=== PATIENT | female | born 1940 | race Caucasian/White ===

== ENCOUNTER 2018-05-12 11:00 | Day surgery (SDC) | payer MEDICARE ==
[~2018-05-12] VITALS: Ht 160 cm; Wt 78.9 kg
[~2018-05-12 11:00] MED LIST: NORCO 5-325 TA1 EACH PO
[2018-05-12] MEDS ORDERED: HYDROCODON-ACE1 EA10 PO (13:34)
--- NOTE | 2018-05-12 13:59 | NUR ---
05/12/18 1358 Sydnee Moctezuma 1336- PT ARRIVES TO PACU ALERT. RESP EVEN AND UNLABORED. OXYGEN SAT HIGH 90'S ON RA. PT STATES HER HAND FEELS LIKE AN "INFERNO"! PT IS UPSET THAT HER HAND FEELS LIKE IT IS ON FIRE. KE ERICKSON CRNA NOTIFIED AND MEDICATIONS ORDERED. 1343- PT RESTING AT THIS TIME. OXYGEN SAT DROPPED TO 87% ON RA. PT INSTRUCTED TO TAKE DEEP BREATHS AND COUGH. PT IS ABLE TO PERFORM THESE AND OXYGEN INCREASED TO THE HIGH 90'S ON RA. 1345- PT STATES THE PAIN IS MUCH IMPROVED. RATES THE PAIN A 4/10 AND PT IS MUCH HAPPIER. PT IS TALKING AND TELLING STORIES. 1351- PT DRINKING WATER AND TOLERATING WELL.
--- NOTE | 2018-05-15 08:12 | OR ---
[facility] [address], [place] [address] Signed DATE OF OPERATION: 05/12/2018 SURGEON: Jodi Fisher MD PREOPERATIVE DIAGNOSIS: Trigger finger, left ring and small. POSTOPERATIVE DIAGNOSIS: Trigger finger, left ring and small. PROCEDURE PERFORMED: Trigger finger release, left ring and small. TRANSPORTATION COORDINATOR: None. ANESTHESIA: [place] block. TOURNIQUET TIME: 20 minutes. BRIEF HISTORY: Brisa is a 78-year-old female with pain and locking in her fingers. She had extensive synovitis associated with this. Risks and benefits of operative treatment discussed with her and she elected to proceed. DESCRIPTION OF PROCEDURE: Once consent was obtained, she was taken to the operating room. After adequate anesthesia, she was placed on the operating room table. Downside pressure points were well padded. After establishment of [place] block, hand was prepped and draped in a standard sterile fashion. A 1 cm incision was made in the distal palmar crease of the fourth ray and taken through skin and subcutaneous tissue. The A1 ary was identified and under loupe magnification, was released. The finger was then moved. The tendon had full excursion. Second incision was made overlying the fifth ray and carried through the skin and subcutaneous tissue and directly down on the A1 ary once again. Again it was released under loupe magnification. The finger had full excursion with full tendon excursion underneath. Both wounds were copiously irrigated with antibiotic solution, closed with 3-0 nylon, dressed with bacitracin, Adaptic, 4 x 8 gauze, and did infiltrate 4 mL of 0.5% plain Marcaine. At the end of the procedure, she was awakened and taken to Electronically Signed By: JODI FISHER MD 05/15/18 0812 PATIENT NAME: BRISA ROME OPERATIVE REPORT DATE OF : 44 REPORT #: [id number] PHYSICIAN: JODI FISHER MD PCP: NO PRIMARY CARE PHYSICIAN REPORT IS CONFIDENTIAL AND NOT TO BE RELEASED WITHOUT AUTHORIZATION [address] [place], [place] [address] Signed the recovery room in satisfactory condition. All sponge, needle, and instrument counts were correct. Jodi Fisher MD BA/MODL /[id number] Copies: ~ Electronically Signed By: JODI FISHER MD 05/15/18 0812 PATIENT NAME: BRISA ROME OPERATIVE REPORT DATE OF : 44 REPORT #: [id number] PHYSICIAN: JODI FISHER MD PCP: NO PRIMARY CARE PHYSICIAN REPORT IS CONFIDENTIAL AND NOT TO BE RELEASED WITHOUT AUTHORIZATION
== END 2018-05-12 14:48 | disposition home or self-care (01) ==
LOC: DS 11:00 → OPS 11:00
PROVIDERS: Specialist
PROC: 0LN80ZZ Release Left Hand Tendon, Open Approach (ICD-10-PCS; principal; 2018-05-12 12:00)
DX: M65.342 Trigger finger, left ring finger (principal); M65.352 Trigger finger, left little finger; G56.02 Carpal tunnel syndrome, left upper limb; M72.0 Palmar fascial fibromatosis [Dupuytren]
CPT/HCPCS: 01810; J0690; J2250; J2704; J3010; J7120

== ENCOUNTER 2019-10-12 01:21 | Emergency (ER) | payer MEDICARE ==
[~2019-10-12] VITALS: Ht 160 cm; Wt 81.7 kg
--- OUTSIDE RECORDS SUMMARY | ~2019-10-12 | XMS | Encounter Summary ---
Demographics + + + | Address | [address] | | | [place] [address] | + + + | Home Phone | | + + + | Preferred Language | Unknown | + + + | Marital Status | Unknown | + + + | Buddhism Affiliation | Unknown | + + + | Race | Unknown | + + + | Ethnic Group | Unknown | + + + Author + + + | Author | [facility] | | | and [place] | + + + | Organization | [facility] | | | and [place] | + + + | Address | Unknown | + + + | Phone | Unavailable | + + + Support + + +---------+ + | Name | Relationship | Address | Phone | + + +---------+ + | Everardo Huang | ECON | Unknown | | + + +---------+ + | Kacymoi Bentley | ECON | Unknown | | + + +---------+ + Care Team Providers + +------+ + | Care Bariatric Program Coordinator Name | Role | Phone | + +------+ + | No, Physician | PCP | Unavailable | + +------+ + Reason for Visit + + + | Reason | Comments | + + + | Establish Care | Carpal Tunnel Syndrome | + + + Evaluate & Treat (Routine) +--------+ + + + + + | Status | Reason | Specialty | Diagnoses / | Referred By | Referred To | | | | | Procedures | Contact | Contact | +--------+ + + + + + | Closed | Specialty | Neurology | Diagnoses | Phillip, | Cheryl, | | | Services | | Carpsom | Victor M Davis, | Ophelia Chan, | | | Required | | tunnel | MD [address] | MD [address] | | | | | syndrome, | [address] | [address], | | | | | right upper | [place] | [address] | | | | | limb [place] | [place] | [place] | | | | | tunnel | [address] | [address] Phone: | | | | | syndrome, | Phone: | [phone] | | | | | left upper | [phone] | Fax: | | | | | limb | Fax: | [phone] | | | | | | [phone] | | +--------+ + + + + + Encounter Details +--------+---------+ + + + | Date | Type | Department | Care Team | Description | +--------+---------+ + + + | 08/03/ | Office | [facility] | [facility] | Hand numbness | | 2019 | Visit | [facility] | [address] | | | | | [address] | [address] | | | | | [address], | [place] [address] | | | | | [place] [address] | [phone] | | | | | [phone] | | | | | | | Ophelia Luna, | | | | | | MD [address] | | | | | | [address] | | | | | | [place] [address] | | | | | | [phone] | | | | | | | | +--------+---------+ + + + Social History + + + +--------+ + | Tobacco Use | Types | Packs/Day | Years | Date | | | | | Used | | + + + +--------+ + | Former Smoker | Cigarettes | | | 1966 | + + + +--------+ + + +---+---+---+ | Smokeless Tobacco: | | | | | Never Used | | | | + +---+---+---+ + + +---------+ + | Alcohol Use | Drinks/Week | oz/Week | Comments | + + +---------+ + | Yes | 2 Standard drinks | 2.0 | | | | or equivalent | | | + + +---------+ + + + + | Sex Assigned at | Date Recorded | | | | + + + | Not on file | | + + + documented as of this encounter Last Filed Vital Signs + + + + + | Vital Sign | Reading | Time Taken | Comments | + + + + + | Blood Pressure | 139/84 | 08/03/2018 9:04 AM | | | | | PDT | | + + + + + | Pulse | 80 | 08/03/2018 9:04 AM | | | | | PDT | | + + + + + | Temperature | - | - | | + + + + + | Respiratory Rate | 18 | 08/03/2018 9:04 AM | | | | | PDT | | + + + + + | Oxygen Saturation | 98% | 08/03/2018 9:04 AM | | | | | PDT | | + + + + + | Inhaled Oxygen | - | - | | | Concentration | | | | + + + + + | Weight | 81.2 kg (179 lb 1.6 | 08/03/2018 9:04 AM | | | | oz) | PDT | | + + + + + | Height | 161.3 cm (5' 3.5") | 08/03/2018 9:04 AM | | | | | PDT | | + + + + + | Body Mass Index | 31.23 | 08/03/2018 9:04 AM | | | | | PDT | | + + + + + documented in this encounter Patient Instructions Patient Instructions Ophelia Luna MD - 08/03/2018 9:15 AM PDTFormatting of this no te might be different from the original. You have the following tests/procedures ordered. At [facility] Electromyography (EMG) study with Dr. Luna Other Instructions: Wear wrist extensor braces at night. *Any questions, please call Dr. Luna's office at Patient advised of their right to have diagnostic testing, health care treatment, and/or se rvices at a facility other than [facility]. Understanding Carpal Tunnel Syndrome The carpal tunnel is a narrow space inside the wrist. It is ringed by bone and a band of to h tissue called the transverse carpal ligament. A major nerve called the median nerve runs from the forearm into the hand through the carpal tunnel. Tendons also run through the carp al tunnel. With carpal tunnel syndrome, the tendons or nearby tissues within the carpal tunnel may swe ll or thicken. Or the transverse carpal ligament may harden and shorten. This narrows the sp lily in the carpal tunnel and puts pressure on the median nerve. This pressure leads to tingl ing and numbness of the hand and wrist. In time, the condition can make even simple tasks garrison rd to do. What causes carpal tunnel syndrome? Doctors aren t entirely clear why the condition occurs. Certain things may make a person more likely to have it. These include: Being female Being Being overweight Having diabetes or rheumatoid arthritis Symptoms of carpal tunnel syndrome Symptoms often come and go. At first, symptoms may occur mainly at night. Later, they may b e noticed during the day as well. They may get worse with activities such as driving, readin g, typing, or holding a phone. Symptoms can include: Tingling and numbness in the hand or wrist Sharp pain that shoots up the arm or down to the fingers Hand stiffness or cramping, especially in the morning Trouble making a fist Hand weakness and clumsiness Treatment for carpal tunnel syndrome Certain treatments help reduce the pressure on the median nerve and relieve symptoms. [facility] es for treatment may include one or more of the following: Wrist splint. This involves wearing a special brace on the wrist and hand. The splint ho lds the wrist straight, in a neutral position. This helps keep the carpal tunnel as open as possible. Cortisone shots. Cortisone is a medicine that helps reduce swelling. It is injected dire ctly into the wrist. It helps shrink tissues inside the carpal tunnel. This relieves symptom s for a time. Pain medicines. You may take gchm-qpb-odcxuur or prescription medicines to help reduce s welling and relieve symptoms. Surgery. If the condition doesn t respond to other treatments and doesn t go away on its own, you may need surgery. During surgery, the surgeon cuts the transverse carpal ligam ent to relieve pressure on the median nerve. When to call your healthcare provider Call your healthcare provider right away if you have any of these: Fever of 100.4F (38C) or higher, or as directed Symptoms that don t get better, or get worse New symptoms Date Last Reviewed: 06/19/201519994078-5445 [employer]. [address] [place] [address]. All righ ts reserved. This information is not intended as a substitute for professional medical care. Always follow your healthcare professional's instructions. documented in this encounter Progress Notes Ophelia Luna MD - 08/03/2018 9:15 AM PDT Patient: Brisa Huang Medical Record: [id number] Date of Services: 08/03/2018 Referring Doctor: No Physician on file Chief Complaint Patient presents with [facility] Carpal Tunnel Syndrome HISTORY OF PRESENT ILLNESS: The patient is a 78-year-old female who is referred to me because of bilateral thumb numbne ss. Her symptoms started a year ago and are progressively worsening. She describes numbness an d pain in both thumbs that occasionally radiates a few inches up her forearms. They are wor se at night and usually wake her up. She is not currently wearing braces. She also finds it difficult to hold things in her hands such as a phone or a tablet. She a lso now has difficulty doing embroidery and crocheting. Her symptoms are worse on the left where she is also losing her pickle solution maker. She also has difficulty opening jars. She does have a history of trigger finger release in both hands. She denies elbow pain. S he does have a history of neck pain. REVIEW OF SYSTEMS: General: No fever HEENT: No vision changes Cardiovascular: No chest pain Respiratory: No shortness of breath Gastrointestinal: No belching Musculoskeletal: Positive for joint stiffness Skin: Positive for dryness and itchiness Hematologic: Positive for bruising Neurologic: Positive for memory loss Psychiatric: Positive for depression Genitourinary: Positive for nocturia PAST MEDICAL HISTORY: Past Medical History: Diagnosis Date Breast cancer (HCC) Depression Migraine PAST SURGICAL HISTORY: Past Surgical History: Procedure Laterality Date CERVICAL SPINE SURGERY FINGER TRIGGER RELEASE KNEE ARTHROSCOPY MEDICATIONS: No current outpatient medications on file. No current facility-administered medications for this visit. ALLERGIES: Allergies Allergen Reactions Hydrocodone Itching Social History Socioeconomic History Marital status: Not on file Spouse name: Not on file Number of children: Not on file Years of education: Not on file Highest education level: Not on file Social Needs Financial resource strain: Not on file Food insecurity - worry: Not on file Food insecurity - inability: Not on file Transportation needs - medical: Not on file Transportation needs - non-medical: Not on file Occupational History Not on file Tobacco Use Smoking status: Former Smoker Types: Cigarettes Start date: 1966 Last attempt to quit: 1986 Years since quittin.3 Smokeless tobacco: Never Used Substance and Sexual Activity Alcohol use: Yes Alcohol/week: 1.2 oz Types: 2 Standard drinks or equivalent per week Drug use: Never Sexual activity: Not on file Other Topics Concern Not on file Social History Narrative Not on file Family History Problem Relation Age of Onset Stroke Mother Stroke Sister Diabetes Sister Heart disease Sister PHYSICAL EXAMINATION: BP 139/84 | Pulse 80 | Resp 18 | Ht 1.613 m (5' 3.5") | Wt 81.2 kg (179 lb 1.6 oz) | S pO2 98% | BMI 31.23 kg/m Neck is supple. Lungs are clear. Heart sounds are within normal limits. Abdomen is soft and non-tender, There is no extremity cyanosis or edema. NEUROLOGIC EXAMINATION: MENTAL STATUS: The patient is awake, alert, and oriented to time, place, and person. [facility] is fluent. Memory, attention, comprehension, and general fund of knowledge are intact. CRANIAL NERVES: Funduscopy revealed distinct disc margins. There are no exudates or hemor rhages noted. Pupils are 3-4 mm, equal and reactive to light and accommodation. Extraocular muscle movements are intact. There are no visual field cuts. There is no nystagmus. There is no facial asymmetry. Facial sensation is intact. Palate elevates symmetrically. Streng th in the trapezius and sternocleidomastoid muscles is normal. Tongue is midline on protrusi on. MOTOR EXAMINATION: Strength is 4/5 in the bilateral abductor pollicis brevis muscles, slig htly worse on the left. SENSORY EXAMINATION: Diminished pinprick in the palmar surface of both thumbs. DEEP TENDON REFLEXES: 1+ and symmetric. PLANTAR RESPONSES: Downgoing bilaterally GAIT: Gait and station are normal. CEREBELLAR EXAMINATION: There is no dysmetria on sptrha-pm-dvzl test. Miscellaneous: There is mild thenar atrophy noted in the left. Tinel's and Phalen's signs are positive bilaterally IMPRESSION: 1. Hand numbness - EMG-BUE; Future PLAN AND RECOMMENDATIONS: I reviewed the possible etiology of the patient's symptoms with her. I believe she has naeem ateral carpal tunnel syndrome and I went over the pathophysiology of the condition. I also went over treatment options including braces, medications, steroid injections, and c arpal tunnel release. She was advised to start wearing wrist extensor braces at night. She will be scheduled for an EMG examination of the upper extremities. Following the study , she will be referred back to her orthopedic surgeon, Dr. Victor M Fisher who made this refer ral. More than 50% of this 45 minute visit was spent on patient education and her plan of care. Thank you for the opportunity to participate in the care of this patient. Ophelia Luna MD08/03/20189:33 Electronically signed This note was transcribed using voice recognition software. There may be speech recognitio n errors which escaped detection during review. documented in thi s encounter Plan of Treatment Not on filedocumented as of this encounter Results EMG-BUE (08/11/2018 11:45 AM PDT) + + + | Narrative | Performed At | + + + | Ophelia Luna MD 08/11/2018 12:21 Please see scanned | | | report. | | + + + documented in this encounter Visit Diagnoses + + | Diagnosis | + + | Hand numbness Disturbance of skin sensation | + + documented in this encounter
--- OUTSIDE RECORDS SUMMARY | ~2019-10-12 | XMS | Clinical Summary ---
Demographics + + + | Address | [address] | | | [place] [address] | + + + | Home Phone | | + + + | Preferred Language | Unknown | + + + | Marital Status | Unknown | + + + | Advent Affiliation | Unknown | + + + | Race | Unknown | + + + | Ethnic Group | Unknown | + + + Author + + + | Author | [facility] | | | and [place] | + + + | Organization | [facility] | | | and [place] | + + + | Address | Unknown | + + + | Phone | Unavailable | + + + Support + + +---------+ + | Name | Relationship | Address | Phone | + + +---------+ + | Everardo Huang | ECON | Unknown | | + + +---------+ + | Kacy Bentley | ECON | Unknown | | + + +---------+ + Care Team Providers + +------+ + | Care Microcomputer Technician Name | Role | Phone | + +------+ + | No, Physician | PCP | Unavailable | + +------+ + Allergies + + + + + + | Active Allergy | Reactions | Severity | Noted | Comments | | | | | Date | | + + + + + + | Hydrocodone | Itching | | 08/04/19 | | | | | | 19 | | + + + + + + Medications No known medications Active Problems + + + | Problem | Noted Date | + + + | Bilateral carpal tunnel syndrome | 08/03/2018 | + + + Family History + + +------+ + | Medical History | Relation | Name | Comments | + + +------+ + | Stroke | Mother | | | + + +------+ + | Diabetes | Sister | | | + + +------+ + | Heart disease | Sister | | | + + +------+ + | Stroke | Sister | | | + + +------+ + + +------+ + + | Relation | Name | Status | Comments | + +------+ + + | Father | | | | + +------+ + + | Mother | | | | + +------+ + + | Sister | | | | + +------+ + + Social History + + + [...] on file | | + + + Last Filed Vital Signs + + + + + | Vital Sign | Reading | Time Taken | Comments | + + + + + | Blood Pressure | 137/61 | 08/11/2018 11:50 AM | | | | | PDT | | + + + + + | Pulse | 74 | 08/11/2018 11:50 AM | | | | | PDT | | + + + + + | Temperature | - | - | | + + + + + | Respiratory Rate | 18 | 08/11/2018 11:50 AM | | | | | PDT | | + + + + + | Oxygen Saturation | 98% | 08/11/2018 11:50 AM | | | | | PDT | | + + + + + | Inhaled Oxygen | - | - | | | Concentration | | | | + + + + + | Weight | 81.2 kg (179 lb) | 08/11/2018 11:50 AM | | | | | PDT | | + + + + + | Height | 161 cm (5' 3.39") | 08/11/2018 11:50 AM | | | | | PDT | | + + + + + | Body Mass Index | 31.32 | 08/11/2018 11:50 AM | | | | | PDT | | + + + + + Plan of Treatment + + + + + | Health Maintenance | Due Date | Last | Comments | | | | Done | | + + + + + | Vaccine: Zoster (1 | | | | | of 2) | 2 | | | + + + + + | Breast Cancer | | | | | Screening | 7 | | | + + + + + | Vaccine: | | | | | Pneumococcal 65+ (1 | 7 | | | | of 1 - PPSV23) | | | | + + + + + | Adult Annual | | | | | Wellness Visit | 9 | | | + + + + + | Vaccine: Influenza | | | | | (Season Ended) | 0 | | | + + + + + | Vaccine: | | 12/04/19 | | | Dtap/Tdap/Td (2 - | 8 | 18 | | | Td) | | | | + + + + + Results Not on filefrom Last 3 Months Insurance + +--------+ +--------+ +---------+--------+ | Payer | Benefi | Subscriber | Effect | Phone | Address | Type | | | t Plan | ID | bandar | | | | | | / | | Dates | | | | | | Group | | | | | | + +--------+ +--------+ +---------+--------+ | MEDICARE | MEDICA | [id number] | 10/10/19 | [phone] | | Medica | | | RE | | 13-Pre | 5 | | re | | | PART A | | sent | | | | | | AND B | | | | | | + +--------+ +--------+ +---------+--------+ + +--------+ +--------+ + + | Guarantor Name | Accoun | Relation to | Date | Phone | Billing Address | | | t Type | Patient | of | | | | | | | | | | + +--------+ +--------+ + + | Brisa Huang | Person | Self [birth year] | [address] | | | al/Fam | | 1940 | [phone] | [address] [place] | | | kenji | | | [address] (Home) | [place] [address] | + +--------+ +--------+ + + Advance Directives + + + + + | Type | Date Recorded | Patient | Explanation | | | | 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
--- OUTSIDE RECORDS SUMMARY | ~2019-10-12 | XMS | Encounter Summary ---
Demographics + + + | Address | [address] | | | [place] [address] | + + + | Home Phone | | + + + | Preferred Language | Unknown | + + + | Marital Status | Unknown | + + + | Synagogue Affiliation | Unknown | + + + | Race | Unknown | + + + | Ethnic Group | Unknown | + + + Author + + + | Author | [facility] | | | and [place] | + + + | Organization | [facility] | | | and [place] | + + + | Address | Unknown | + + + | Phone | Unavailable | + + + Support + + +---------+ + | Name | Relationship | Address | Phone | + + +---------+ + | Everardo Huang | ECON | Unknown | | + + +---------+ + | Kacyemil Bentley | ECON | Unknown | | + + +---------+ + Care Team Providers + +------+ + | Care Frame Cleaner Name | Role | Phone | + +------+ + | No, Physician | PCP | Unavailable | + +------+ + Reason for Visit + + + | Reason | Comments | + + + | Procedure | EMG - BUE | + + + Encounter Details +--------+ + + + + | Date | Type | Department | Care Team | Description | +--------+ + + + + | 08/11/ | Procedure | [facility] | Ophelia Luna | Hand numbness; | | 2019 | visit | [facility] | MD [address] | Bilateral carpal | | | | CLIN[address] | [address] | tunnel syndrome | | | | [address], | [place], [place] [address] | | | | | [place] [address] | [phone] | | | | | [phone] | | | +--------+ + + + + Social History + + + +--------+ + | Tobacco Use | Types | Packs/Day | Years | Date | | | | | Used | | + + + +--------+ + | Former Smoker | Cigarettes | | | 1967 1986 | + + + +--------+ + + [...] + + + documented in this encounter Progress Ophelia Cm MD - 08/11/2018 11:45 AM PDTProcedure tolerated well. Results explain ed to patient. She will go back to her referring orthopedist. Follow-up at the neurology [facility] as needed. do cumented in this encounter Procedure Notes Ophelia Luna MD - 08/11/2018 11:45 AM PDTAssociated Order(s): EMGPre-Procedure Diag nose(s): Hand numbnessPlease see scanned report. documented in thi s encounter Plan of Treatment Not on filedocumented as of this encounter Procedures + +--------+ + + + | Procedure Name | Priori | Date/Time | Associated Diagnosis | Comments | | | ty | | | | + +--------+ + + + | EMG | Routin | 08/11/2018 | Hand numbness | Results for this | | | e | 11:45 AM | | procedure are in the | | | | PDT | | results section. | + +--------+ + + + | EMG | Routin | 08/11/2018 | Hand numbness | Results for this | | | e | 11:45 AM | | procedure are in the | | | | PDT | | results section. | + +--------+ + + + documented in this encounter Results KELLY (08/11/2018 11:45 AM PDT) + + + | Narrative | Performed At | + + + | Ophelia Luna MD 08/11/2018 12:21 Please see scanned | | | report. | | + + + documented in this encounter Visit Diagnoses + + | Diagnosis | + + | Hand numbness Disturbance of skin sensation | + + | Bilateral carpal tunnel syndrome Carpal tunnel syndrome | + + documented in this encounter
[~2019-10-12 01:21] MED LIST changes: +HYDROCODON-ACE1 EA10 PO
== END 2019-10-12 02:09 | disposition home or self-care (01) ==
LOC: ED 01:21
DX: G89.29 Other chronic pain (principal); M79.645 Pain in left finger(s)
CPT/HCPCS: 73140; 99283-25

== ENCOUNTER 2020-08-17 10:58 | Emergency (ER) | payer MEDICARE ==
[~2020-08-17] VITALS: Ht 160 cm; Wt 70.3 kg
--- NOTE | 2020-08-17 13:14 | EKG ---
[facility] [address] [place] [address] Signed Normal sinus rhythm Septal infarct (cited on or before 02-MAY-2018) Abnormal ECG When compared with ECG of 02-MAY-2018 12:33, Nonspecific T wave abnormality now evident in Lateral leads Confirmed by ELIANE FOSS MD ([id number]) on 08/17/2020 1:14:26 PM Electronically Signed By: ELIANE FOSS MD 08/17/20 1314 PATIENT NAME: TEJ ROMEDOREEN Chan Electrocardiogram DATE OF : 44 PHYSICIAN: ELIANE FOSS MD REPORT #: [id number] REPORT IS CONFIDENTIAL AND NOT TO BE RELEASED WITHOUT AUTHORIZATION
[2020-08-17] MEDS ORDERED: HYDROCODON-ACE1 EA10 PO (14:28)
[2020-08-17] MEDS ORDERED: TESSALON PERLE100 MG PO (14:28)
== END 2020-08-17 14:47 | disposition home or self-care (01) ==
LOC: ED 10:58
DX: R91.8 Other nonspecific abnormal finding of lung field (principal)
CPT/HCPCS: 71045; 71260; 80053; 85025; 93005; 93010; 99285-25; J1170; J1200; J1885; Q9967

== ENCOUNTER 2020-11-18 15:47 | Observation (INO) | payer MEDICARE ==
[~2020-11-18] VITALS: Ht 157.5 cm; Wt 69.2 kg
[~2020-11-18 15:47] MED LIST changes: +TESSALON PERLE100 MG PO
--- OUTSIDE RECORDS SUMMARY | 2020-11-18 15:48 | XMS ---
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 Jj has no Care Guidelines for this patient. [facility]ter VISIT COUNT (12 MO.) 2 [facility] TOTAL 2 NOTE: Visits indicate total known visits. ED/UCC VISIT TRACKING (12 MO.) 11/18/2020 15:47 [facility] [place] TYPE: Emergency COMPLAINT: - CHEST PAIN 08/17/2020 10:[address] [facility] OR TYPE: Emergency COMPLAINT: - DIFFICULTY BREATHING DIAGNOSES: - Other nonspecific abnormal finding of lung field - Shortness of breath INPATIENT VISIT TRACKING (12 MO.) No inpatient visits to display in this time frame [email or web address]
--- NOTE | 2020-11-18 18:46 | EKG ---
[facility] [address] [place], [place] [address] Signed Atrial fibrillation with rapid ventricular response Nonspecific ST and T wave abnormality Abnormal ECG When compared with ECG of 18-NOV-2020 14:45, (Unconfirmed) No significant change was found Confirmed by SWEETIE PACHECO DO ([id number]) on 11/18/2020 6:46:23 PM Electronically Signed By: SWEETIE PACHECO DO 11/18/20 1846 PATIENT NAME: BRITTANI ROME Electrocardiogram DATE OF : 44 PHYSICIAN: SWEETIE PACHECO DO REPORT #: [id number] REPORT IS CONFIDENTIAL AND NOT TO BE RELEASED WITHOUT AUTHORIZATION
[2020-11-19] MEDS ORDERED: HYDROMORPHONE HC2 MG PO (10:19)
[2020-11-19] MEDS ORDERED: GABAPENTIN300 MG PO (10:20)
--- NOTE | 2020-11-19 10:38 | NUR ---
80 YEAR OLD FEMALE PATIENT ADMITTED TO CCU FROM ED VIA STRETCHER UNDER DR. PACHECO WITH DX OF AFIB/RVR. PATIENT WAS ADMITTED TO ED YESTERDAY AT APPROX 1700. PATIENT WITH HISTORY OF LUNG CA AND HAS BEEN TREATED WITH CHEMO AND RADIATION. LAST RADIATION TREATMENT WAS YESTERDAY. LAST CHEMO TREATMENT WAS October.PATIENT HAS HARSH NON-PRODUCTIVE COUGH. ADMISSION PROCESS STARTED.
[2020-11-19] MEDS ORDERED: LORAZEPAM1 MG PO (10:40)
--- NOTE | 2020-11-19 11:45 | NUR ---
DILAUDID 0.5 MG IV GIVEN FOR PAIN IN LEFT SIDE OF CHEST.
--- NOTE | 2020-11-19 11:47 | NUR ---
CONVERTED TO NSR. BP-103/55.
--- NOTE | 2020-11-19 12:28 | NUR ---
O2 TO OFF. WILL CONTINUE TO MONITOR OXIMETER.
--- NOTE | 2020-11-19 12:40 | NUR ---
O2 SATS TO 85. O2 REAPPLIED AT 2 LITERS NC.
--- NOTE | 2020-11-19 13:10 | NUR ---
O2 DECREASED TO 1 L NC.
--- NOTE | 2020-11-19 13:15 | NUR ---
DR. PACHECO HERE TO SEE PATIENT.
--- NOTE | 2020-11-19 15:20 | NUR ---
UP TO BR TO VOID APPROX 90 ML OF FOUL SMELLING CONCENTRATED URINE. DENIES PAINFUL URINATION. DENIES DIZZINESS WITH MOVEMENT. SPONGE BATH GIVEN PER PATIENT R/O. BACK TO BED W/O INCIDENT.
--- NOTE | 2020-11-19 15:58 | NUR ---
ECHO WILL NOT BE DONE TODAY YOUTH PASTOR NOT HERE AT THIS TIME. PATIENT IS AWARE.
--- NOTE | 2020-11-19 18:00 | NUR ---
REPORT TO MED-SURG.
--- NOTE | 2020-11-19 18:10 | NUR ---
TO MED-SURG VIA CHAIR.
--- NOTE | 2020-11-19 18:55 | NUR ---
REPORT RECEIVED FROM KEVIN RODRIGUEZ. PT AND SISTER IN ROOM. ORDERING BREAKFAST FOR TOMORROW. ANSWERED QUESTIONS. PT DENIES CONCERNS.
--- NOTE | 2020-11-19 21:46 | NUR ---
c/o 8/10 l sided h/a, medicated with dilaudid 2mg po
--- NOTE | 2020-11-20 00:08 | NUR ---
Up to bsc, pivot transfer, weak gait, voided, sample sent to lab. back to bed, moistproductive cough of cler thick drainage noted, tolerating ice chips, o2 2lNC not chronic, sob on exertion noted, backto bed, reposisions self in bed
--- NOTE | 2020-11-20 01:59 | NUR ---
AWAKE, COOP WITH VITALS AND ASSESSMENT. TOLERATING FLUIDS WELL, NO C/O PAIN, IVF INFUSING
--- NOTE | 2020-11-20 03:43 | NUR ---
RESTING, CONTINUES ON NEUTROPENIC ISOLATION PRECAUTIONS, COOP WITH ASSESSMENT, o2 1lnc, ivf INFUSING, USES CALL LIGHT, TOLERATING LIQUIDS WELL. uP TO BSC, VOIDED, BACK TO BED, SOB WITH EXERTION NOTED.
--- NOTE | 2020-11-20 04:35 | NUR ---
1PA PT TO THE TOILET, THEN BACK TO BED, NO FURTHER NEEDS
--- NOTE | 2020-11-20 04:56 | NUR ---
Pt on 1L NC O2, not chronic. sob with exertion, lungs with crackles and dim at bases. harsh dry cough, productive at times of thick white to beige colored sputum, scant amount. hx lung ca with last chemo session 11/18, on Neutropenic precautions. IVF infusing,tele#[address], SR with ocassional SPVB's, no chest pain. 1PA, has voided QS, tolerating liquids well. was medicated with DIlaudid per c/o left side and abd pain , effective, medicated with zofran per c/o feeling nauseated, effective, no emesis. UA was resend to lab continues to staed 4+ MD jena to assess in am. Pt is to have an ECHO in am, uses call light.
--- NOTE | 2020-11-20 05:24 | NUR ---
awake, watching tv, no c/o pain or n/v, ivf infusing, tele#[address], no c/o cp or rapid rate. uses call light and fresh fluids and ice chips given, dry hacky cough still present, turns self in bed
--- NOTE | 2020-11-20 07:39 | NUR ---
pt reports pain 15/10. dilaudid 2mg tab given at this time. pt resting in bed alert and oriented.
--- NOTE | 2020-11-20 07:57 | NUR ---
PT GIVEN PAIN MEDICATIONS, PT SAID SHE WILL NEED NAUSEA MEDICATION BEFORE BREAKFAST, WENT TO GET NURY CAME BACK TO SEE PT COUGHING AND SPITTING UP, INTO EMESIS BAG. CCU CALLED TO REPORT IRREGULARITIES OF RYTHM, THEN RESOLVED. REPORTED TO SALES LEADER THAT PT WOULD LIKE SOME MEDICINE FOR COUGHING.
--- NOTE | 2020-11-20 09:00 | NUR ---
Spoke with Brisa, she lives in [place] in a 1 story home with 1 step . No issues getting in or out of her home. She lives alone, but her sister in law, Valerie, is staying with her. Pt does not not use any DME at this time. Pt is nauseated and not feeling well and receives medication as I am speaking with her from RN. States she is ok to continue and is ok financially. Awaiting Echo, Valerie calls in at end of our conversations and states she will wait an hour or so before she visits to allow meds to work. Pt plans on dc to home with assist from Valerie when she discharges.
--- NOTE | 2020-11-20 10:00 | NUR ---
PT UP TO BED SIDE COMMODE VOIDED, COUGHING WITH ACTIVITY. BACK TO BED, SLAB INSTALLER AT ROOM DOOR AT THIS TIME.
--- NOTE | 2020-11-20 12:05 | NUR ---
PT RESTING IN BED EYES CLOSED RR 17 BPM, NO DISTRESS NOTED.
--- NOTE | 2020-11-20 12:45 | NUR ---
PT HAS DAUGHTER IN ROOM VISITNG, PT HAD NAUSEA EMESIS. PHENERGAN 12.5 MG IV ADMINISTERED.
--- NOTE | 2020-11-20 12:48 | NUR ---
UPDATED ON UA FROM LAST NIGHT AND PT CURRENT STATUS...STILL HAVING COUGHING AND NAUSEA.
--- NOTE | 2020-11-20 13:05 | NUR ---
PT RESTING IN BED COUGHING AT THIS TIME. ABX STARTED.
--- NOTE | 2020-11-20 14:01 | NUR ---
pt sleeping in bed, guest sleeping on couch.
--- NOTE | 2020-11-20 15:02 | NUR ---
THIS RN ASKED TO ASSIST WITH IV START. IV STARTED PER PROTOCOL IN LEFT FORARM. PT TOLERATED PROCEEDURE WELL. BRISK BLOOD RETURN NOTED WITH IV START. IV FLUSHES EASILY. NO S/S OF PHEBITIS NOTED. PT WORKING WITH HER PRIMARY RN. NO ADDITONAL REQUESTS OR COMPLAINTS.
--- NOTE | 2020-11-20 15:19 | NUR ---
PT REPORTS PAIN 5/10 AFTER NEW IV START, HER CURRENT IV HAD BECOME TENDER AT SIGHT,NO REDNESS OR SWELLING. WHEN PT WAS EXPLAINED A NEW IV WOULD NEW STARTED SHE WAS VERY IRRITATED SAYING "I SUPPOSE I DONT HAVE A CHOSE". RN EXPLAINED SHE HAS PT RIGHTS AND SHE CAN REFUSE ANY TREATMENT OR PROCEDURE. PT THAT LOWERED HER VOICE TO A DEEP SHARP VOICE AND SAID "PUT IT IN!" THIS RN EXPLAINED THAT I WOULD HAVE TO GO GATHER SUPPLIES AND THAT I WOULD BE BACK. IV PLACED BY JOSE MANUEL BROWN.
--- NOTE | 2020-11-20 17:01 | NUR ---
PT HAD POSITIVE UA 4+ NAOMY, STARTED ABX TODAY. PT HAS BEEN UP TO BSC 1P ASSIST. SHE HAS HARSH COUGH THAT OFTEN PROGRESSES TO EMESIS/GAG. NAUSEA PRN X3, PAIN PRN X3. PT HAS DAUGHTER IN LAW IN ROOM THAT HELPS CARE FOR HER. PT REPORTED PAIN AT IV SITE, NEW SITE PLACED. SHE HAD CHEMO TWO DAYS AGO. POOR APPETITE TODAY. COUGH PRN X1.
--- NOTE | 2020-11-20 17:50 | NUR ---
PT RESTING IN BED EYES CLOSED, RELAXED POSITION, RR 17 BPM. NO DISTRESS NOTED. PT [id number] HAS LEFT FOR THE DAY.
--- NOTE | 2020-11-20 20:15 | NUR ---
PT CALLED, IV ALARMING. ADDED MORE FLUID, DENIED OTHER NEEDS.
--- NOTE | 2020-11-20 20:33 | NUR ---
Pt on room air, lungs crackles at bases, dim, cont to have hacky harsch cough, robutossin given. no c/o pain, irritable mood, not easily redirectable. ivf infusign LFA.
--- NOTE | 2020-11-20 22:56 | NUR ---
ON ROOM AIR, RESTING, EYS CLOSED, CONTINUES ON NEUTROPENIC PRECAUTIONS. CALL LIGHT AND FLUIDS AT NIGHTSTAND, NO EMESIS, NO S/SX DISCOMFORT, IVF INFUSING. CONT TO REASSURE PT WHEN AWAKE
--- NOTE | 2020-11-21 00:43 | NUR ---
Resting, eys closed,no distress, on room air, ivf infusing, call light at bedside
--- NOTE | 2020-11-21 01:50 | NUR ---
Up to bsc, voided, back to bed, tolerated well, on room air, ivf infusing w/o problems, dry hacky cough at this time, denie need for pain or cough syrup meds.
--- NOTE | 2020-11-21 04:15 | NUR ---
in to get vitals, pt needed to use the toliet, sba with IV pole, no further needs at this time
--- NOTE | 2020-11-21 05:47 | NUR ---
Pt has slept most of this shift. Had irritable and demeaning and condescending behavior toward staff at begining of shift. not easily redirected, "I want to go home, why are you even trying to meke me get up, why do I need another IV bag, why cani I eat what I want, I want to go home so people can come to see me, nobody is telling me anything about whats wrong with me". All questions answered, praised for her efforts, all procedures explained to her prior to, cont to reinforce teaching. was not very coop at begining of shift, better now. Up to bsc, voiding QS, IVF infusing w/o problems. tolerating liquids well, no emesis. uses call light. calmer, pleasant at this time, no c/o CP, no SOB noted with exertion
--- NOTE | 2020-11-21 07:30 | NUR ---
Shift report recieved from RN Meche, pt resting in bed safely w/ call light in reach, RR even and unlabored.
--- NOTE | 2020-11-21 08:05 | NUR ---
MED REC COMPLETE
--- NOTE | 2020-11-21 08:13 | NUR ---
PT RESTING IN BED SAFELY W/ CALL LIGHT IN REACH. PT C/O PAIN FROM COUGHING, PRN PAWAN, COUGH, AND ANXIETY MEDS GIVEN PER PT REQUEST/PROVIDER ORDER. MORNING ASSSESMENT COMPLETED AND SCHEDULED MEDS GIVEN PER PROVIDER ORDER. VSS ON RA. PT DENIES ANY OTHER NEEDS AT THIS TIME.
--- NOTE | 2020-11-21 08:37 | NUR ---
Patient up for the day, got up to the bathroom. Warm washcloth offered and given, breakfast ordered. call light within reach, no further needs at this time.
[2020-11-21] MEDS ORDERED: CEPHALEXIN500 MG PO (09:03)
[2020-11-21] MEDS ORDERED: DILTIAZEM 24HR120 MG PO (09:03)
[2020-11-21] MEDS ORDERED: METOPROLOL TART25 MG PO (09:04)
[2020-11-21] MEDS ORDERED: ELIQUIS5 MG PO (09:04)
--- NOTE | 2020-11-21 09:12 | NUR ---
TOLD THIS RN TO GIVE ROCEPHIN NOW BEFOR DISCHARGE.
--- NOTE | 2020-11-21 09:54 | NUR ---
STACY FROM 'S OFFICE FOR RADIATION TREATMENT ASKED TO PASS A MESSAGE TO PT TO CALL HER WHEN SHE IS AWAKE. CASE MANAGEMENT ENRIQUETA WENT TO ROOM TO TALK TO PT AND GAVE HER THIS MESSAGE.
--- NOTE | 2020-11-21 10:00 | NUR ---
Provider in to see pt, discharge orders. Will discharge pt once IV abx finish infusing.
[2020-11-21] MEDS ORDERED: XARELTO20 MG PO (10:03)
--- NOTE | 2020-11-21 11:25 | NUR ---
SPOKE WITH PATIENT IN ROOM. SHE IS AWARE SHE MAY DISCHARGE TODAY. GAVE PATIENT A MESSAGE TAKEN AT NURSING STATION FROM STACY AT RADIATION TREATMENT FOR PATIENT TO CALL WHEN SHE WANTS TO RESCHEDULE. PATIENT STATES "OH, THIS IS THE FIRST DAY I HAVEN'T HAD PAIN, DON'T WANT TO GO FOR AWHILE". STATES SHE WILL CALL THEM. SHE STATES THAT YES, SHE IS GOING HOME AND HER [id number] WILL PROVIDE TRANSPORTATION AND HELP HER AT HOME. SHE DOES NOT THINK SHE NEEDS ANYTHING TO GO HOME SAFELY. SHE HAS NO QUESTIONS OR CONCERNS AT THIS TIME.
== END 2020-11-21 11:50 | disposition home or self-care (01) ==
LOC: ED 15:47 → MS 15:48 → CCU 11-19 09:24 → ED 11-19 09:24 → MS 11-19 18:10 → CCU 11-19 18:10 → MS 11-19 18:10
PROVIDERS: ADMIT Student in an Organized Health Care Education/Training Program; ATTEND Student in an Organized Health Care Education/Training Program
DX: I48.91 Unspecified atrial fibrillation (principal); C34.90 Malignant neoplasm of unspecified part of unspecified bronchus or lung; N39.0 Urinary tract infection, site not specified; E86.0 Dehydration; F41.9 Anxiety disorder, unspecified; G89.3 Neoplasm related pain (acute) (chronic); Z20.822 Contact with and (suspected) exposure to COVID-19
CPT/HCPCS: 71045; 80048; 80053; 81001; 83735; 84443; 84484; 85025; 87088; 93005; 93010; 93306; 96366; 96367; 96374; 96375; 96376; 99285-25; A9270-GY; C9803; G0378; J0696; J1170; J2060; J2405; J2550; J3475; J7030; J7121; U0003

== ENCOUNTER 2020-12-08 09:53 | Inpatient (IN) | payer MEDICARE ==
[~2020-12-08] VITALS: Ht 157.5 cm; Wt 65.2 kg
[~2020-12-08 09:53] MED LIST changes: +CEPHALEXIN500 MG PO; +DILTIAZEM 24HR120 MG PO; +ELIQUIS5 MG PO; +GABAPENTIN300 MG PO; +HYDROMORPHONE HC2 MG PO; +LORAZEPAM1 MG PO; +METOPROLOL TART25 MG PO; +XARELTO20 MG PO
--- OUTSIDE RECORDS SUMMARY | 2020-12-08 09:56 | XMS ---
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 Care History Medical/Surgical 11/19/2020 [facility] - Patient is currently established with [facility]. If patient is seen in the ED during business hours. Please contact CHWs at [facility]. Care Recommendation: If this patient has had 5 or more Emergency Department visits in the last 12 months.\T\nbsp; Patient will require education on the scope and purpose of the ED as an acute care provider not a Primary Care Provider and should not be utilized for chronic conditions.\T\nbsp; These are guidelines and the provider should exercise clinical judgment when providing care. E.D. VISIT COUNT (12 MO.) 3 [facility] TOTAL 3 NOTE: Visits indicate total known visits. ED/UCC VISIT TRACKING (12 MO.) 12/08/2020 09:53 [facility] [place] TYPE: Emergency COMPLAINT: - IRREGULARE HEART RATE 11/18/2020 15:47 [facility] [place] TYPE: Emergency COMPLAINT: - CHEST PAIN 08/17/2020 10:59 [facility] [place] TYPE: Emergency COMPLAINT: - DIFFICULTY BREATHING DIAGNOSES: - Other nonspecific abnormal finding of lung field - Shortness of breath INPATIENT VISIT TRACKING (12 MO.) 11/19/2020 09:24 [facility] TYPE: Observation COMPLAINT: - AFIB W/ RVR DIAGNOSES: - Dehydration - Malignant neoplasm of unspecified part of unspecified bronchus or lung - Neoplasm related pain (acute) (chronic) - Unspecified atrial fibrillation - Anxiety disorder, unspecified - Urinary tract infection, site not specified [email or web address]
--- NOTE | 2020-12-08 15:30 | NUR ---
PATIENT ADMITTED AROUND 1400 TO CCU FOR AFIB W/RVR. PT IN THE 140-150s UP ON ARRIVAL TO CCU. PT ABLE TO STAND TO PIVOT TO CCU BED DOES BECOME SOMEWHAT DIZZY AND NAUESOUS WITH THIS MOVEMENT. 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 PT REC'D HER LAST CHEMO AND RADIATION TREATMENT LAST 12/04/20. PT IS UNDERGOING TREATMENT FOR LUNG CA WHICH WAS DIAGNOSED IN JUNE, BUT PATIENT REPORTS THAT SHE HAS HAD A CONSTANT COUGH SINCE FEBRUARY OF LAST YEAR. PT ALSO STATES SHE HAS LOST 45 LBS SINCE CANCER DIAGNOSIS. PT ON DILT GTT AT 7.5 MG/HR UPON ARRIVAL AND THIS TITRATED UP TO 10 MG/HR. HR STAYING >120s. PLAN OF CARE DISCUSSED WITH PATIENT AND EDUCATION PROVIDED ABOUT AFIB/STROKE PROPHYLAXIS/HR MEDICATIONS. PT VERBALIZES UNDERSTANDING. IVF TO BE INFUSING AT 100 ML/HR. CLEAR LIQUID DIET ORDERED FOR PATIENT. PT DENIES PAIN AND SHORTNESS OF BREATH.
--- NOTE | 2020-12-08 17:19 | EKG ---
[facility] [address] [place] [address] Signed Atrial fibrillation with rapid ventricular response Nonspecific ST and T wave abnormality Abnormal ECG Confirmed by MARY RM MD ([id number]) on 12/08/2020 5:19:30 PM Electronically Signed By: MARY RM MD 12/08/20 1719 PATIENT NAME: BRITTANI ROME Electrocardiogram DATE OF : 44 PHYSICIAN: MARY RM MD REPORT #: [id number] REPORT IS CONFIDENTIAL AND NOT TO BE RELEASED WITHOUT AUTHORIZATION
--- NOTE | 2020-12-08 17:57 | NUR ---
LAB IN ROOM TO DRAW 1700 LABS. PT HAS BEEN UP TO VOID X1 FOR 275 ML. PT'S DAUGHTER TIFFANY HAS SINCE VISITED AND LEFT. DAUGHTER BROUGHT PATIENT'S HOME MEDS FOR THIS RN TO REVIEW WITH HER. CONTINUE TO MONITOR.
--- NOTE | 2020-12-08 18:45 | NUR ---
PATIENT SLEEPING AT THIS TIME. REMAINS ON DILT GTT AT 15 MG/HR. IVF CONTINUE AT 100 ML/HR. LAST BP 144/57. HR RANGING 105-115. CONTINUE TO MONITOR.
--- NOTE | 2020-12-08 20:00 | NUR ---
SHIFT REPORT RECEIVED FROM KEVIN MOE. ASSESSMENT COMPLETED. PT IS ALERT/ORIENTED, REPORTS 7/10 BACK PAIN, PRN TYLENOL AND 0.5MG IV DILAUDID GIVEN. LUNGS CLEAR/DIM, ROOM AIR. HR IRREGULAR, RATE 95-120, CARDIZEM DRIP AT 15MG/HR, SCHEDULED PO DOSE GIVEN NOW. BOWEL TONES ACTIVE, PT REPORTS NAUSEA, ZOFRAN GIVEN. SKIN GROSSLY INTACT WITHOUT EDEMA, SKIN CHANGES TO HER BACK FROM RADIATION PRESENT. IV PATENT, FLUIDS INFUSING WNL. PT DENIES NEEDS AT THIS TIME, CALL LIGHT WITHIN REACH.
--- NOTE | 2020-12-08 21:30 | NUR ---
NEW BAG OF CARDIZEM STARTED, CONTINUES TO INFUSE AT 15MG/HR. PT'S DAUGHTER AT BEDSIDE. PT DENIES NEEDS AT THIS TIME, CALL LIGHT WITHIN REACH.
--- NOTE | 2020-12-08 23:40 | NUR ---
CALL LIGHT ANSWERED. PT UP TO BSC TO VOID, UNSTEADY ON FEET, 1-PA. NEW ATTENDS PROVIDED, PT PERFORMED OWN PERICARE. CARDIZEM DRIP TITRATED TO 10MG/HR FOR MAP OF 60, HR REMAINS 80-110. PRN COUGH MEDICINE GIVEN. NO OTHER CHANGES FROM PREVIOUS ASSESSMENT.
--- NOTE | 2020-12-09 00:40 | NUR ---
IN TO TITRATE CARDIZEM DRIP TO 5MG/HR FOR MAP OF 60. PT REPORTS 5/10 CHEST PAIN THAT SHE DESCRIBES AN "ACHE." UNSURE IF THIS IS RELATED TO COUGH OR CANCER, BUT MD AWARE AND PRN DILAUDID GIVEN. PT DENIES FURTHER NEEDS AT THIS TIME.
--- NOTE | 2020-12-09 01:05 | NUR ---
TEX DRIP OFF AT THIS TIME FOR BP: 81/42(55). HR 85-105.
--- NOTE | 2020-12-09 02:00 | NUR ---
CHECKED IN ON PT WHO STATES THE PAIN IN HER CHEST IS MOSTLY RESOLVED, STATES IT "COMES AND GOES." REPORTS FEELING ANXIOUS AND HAS NOT YET BEEN ABLE TO SLEEP, PRN ATIVAN GIVEN. FRESH ICE WATER PROVIDED. DENIES FURTHER REQUESTS.
--- NOTE | 2020-12-09 03:40 | NUR ---
RESTARTED CARDIZEM DRIP AT 5MG/HR FOR HR 110-120'S. ASSESSMENT COMPLETED. PT REPORTS 7/10 PAIN TO CHEST AND BACK , 1MG IV DILAUDID GIVEN. NO OTHER CHANGES FROM PREVIOUS ASSESSMENT. CALL LIGHT WITHIN REACH.
--- NOTE | 2020-12-09 04:15 | NUR ---
CARDIZEM DRIP TITRATED TO 10 MG/HR FOR HR IN 120'S. 2L OXYGEN PLACED ON PT FOR DESATURATIONS IN LOW 80'S AFTER RECEIVING DILAUDID.
--- NOTE | 2020-12-09 04:16 | NUR ---
IN ROOM ANSWERED PATIENT'S CALL LIGHT. REPORTS HE THINKS HE NEEDS TO HAVE ANOTHER BM. PATIENT UNSURE OF NEED TO VOID ASKED TO USE URINAL FIRST IN THE BED. HE WAS UNSUCCESSFUL AT VOIDING. ROLF FROM RT IN ROOM TO CHECK ON PATIENT AND SHE ASSISTED THIS N IN GETTING PATIENT ON BEDSIDE COMMODE WHILE ON BIPAP. PATIENT SAT ON COMMODE FOR ABOUT 10-15 MINUTES, HAD SMALL SOFT BROWM BM, SOME URINE IN WITH STOOL. DUE TO PATIENT'S ANATOMY "I JUST LET IT GO" AND UNABLE TO GET IT IN THE URINAL WHILE ON COMMODE. PATIENT BACK TO BED, HE SEEMED TO TOLERATE MOVEMENT ON BIPAP WELL. BIPAP SETTINGS PER RT15/10 100% FiO2. CALL LIGHT IN REACH. PATIENT ALSO TOO SEVERAL MORE SIPS OF WATER.
--- NOTE | 2020-12-09 04:30 | NUR ---
OXYGEN TITRATED TO 1L.
--- NOTE | 2020-12-09 05:10 | NUR ---
CALL LIGHT ON. pt UP TO VOID, BSC. UNSTEADY ON FEET 1PA. VOID. BACK TO BED. CALL LIGHT WITHIN REACH. PROVIDED WITH ICE
--- NOTE | 2020-12-09 06:29 | NUR ---
PT SLEEPING AT THIS TIME, NO APPARENT DISTRESS. RESPIRATIONS EVEN AND UNLABORED, 1L O2 VIA NC IN PLACE. HR 90-105, CARDIZEM CONTINUE AT 10MG/HR.
--- NOTE | 2020-12-09 06:45 | NUR ---
CARDIZEM DRIP TITRATED TO 7.5MG/HR FOR HR 80-90'S.
--- NOTE | 2020-12-09 08:21 | NUR ---
DR. RM IN ROOM TO SEE PATIENT THIS AM. BREAKFAST ORDERED. PATIENT WANTING TO GET UP AND TRY AND HAVE A BM LATER THIS AM. PT STILL HAVING 5/10 PAIN IN HER BACK AND TYLENOL GIVEN PRN FOR THIS. PT REMAINS ON DILT GTT AT 7.5 MG/HR AND WILL ATTEMPT TO BRING HR DOWN. NEW MED ORDERED PER DR. RM - SEE EMAR. IVF TO BE TURNED DOWN TO 75 ML/HR.
--- NOTE | 2020-12-09 08:32 | NUR ---
[facility] CALLED REGARDING PTS RADIATION WEBB. SKIN DESCRIBED TO TOBY WHO SPOKE WITH DR. WALL. DR. WALL WOULD LIKE SILVADINE CREAM. DR. RM UPDATED AND STATES TO ORDER CREAM. ORDER PLACED. PTS PRIMARY RN UPDATED.
--- NOTE | 2020-12-09 09:18 | NUR ---
PLAN WAS TO AMBULATE TO BR, HOWEVER, PATIENT BEGAN COUGHING AND USED EMESIS BAG FOR A SMALL AMOUNT OF VOMIT. 1PA TO BSC FOR BM INSTEAD. LINEN CHANGED, PATIENT BACK TO BED. CALL LIGHT IN REACH
--- NOTE | 2020-12-09 10:05 | NUR ---
SILVER SULFADIAZINE CREAM APPLIED TO PATIENT'S BURN AREA ON HER BACK. PT HAS BEEN RESTING AND STATES SHE IS STILL SLIGHTLY NAUESOUS. DILT GTT HAS BEEN TURNED OFF HER HR IS BETTER CONTROLLED, CURRENTLY 80s. BLOOD PRESSURES HAVE BEEN SLIGHLY SOFT, AND ARE BEING MONITORED Q15 MINUTES. PT REMAINS ON ROOM AIR.
--- NOTE | 2020-12-09 11:50 | NUR ---
DR. RM CALLED AND UPDATED ON PT'S LOW BLOOD PRESSURES. PT REMAINS OFF DILT GTT SINCE AROUND 944. PT'S LAST BP 77/48 (56). PATIENT LAYING IN BED AND RESTING AT THIS TIME. DR. RM REQUESTING ORTHOSTATIC BLOOD PRESSURES NEXT TIME PATIENT IS UP OUT OF BED. CONTINUE TO MONITOR.
--- NOTE | 2020-12-09 12:42 | NUR ---
PATIENT BACK TO BED AFTER SITTING IN CHAIR AND REPORTS FEELING DIZZY, LIGHTHEADED, AND NAUSEOUS. HR IN THE 80-100s, AND BPs REMAIN LOW, MOST RECENT BEING 73/54 (61). WILL UPDATE DR. RM.
--- NOTE | 2020-12-09 13:34 | NUR ---
Noted on monitor tech that patient has converted to normal sinus rhythm from a. fib. Pt HR 74 on the monitor, in room and rechecked BP, current BP is 93/54. Pt resting with eyes closed, easily awakened to voice. Notified her carddiac rhythm has converted. Pt skin is pink, warm and dry, continues with fluid bolus as ordered by Dr. Martinez.
--- NOTE | 2020-12-09 13:38 | NUR ---
SLEEPING ON RIGHT SIDE, HIGH FLOW O2 AT 10 L, SAT-93.
[2020-12-09] MEDS ORDERED: GABAPENTIN100 MG PO (14:22)
[2020-12-09] MEDS ORDERED: PACLITAXEL6 MG/1 ML IV (14:30)
[2020-12-09] MEDS ORDERED: LIDOCAINE HCL100 ML PO (14:30)
[2020-12-09] MEDS ORDERED: EMEND150 MG IV (14:30)
[2020-12-09] MEDS ORDERED: [UNRECOGNIZED DRUG - OTHER] IV (14:30)
[2020-12-09] MEDS ORDERED: CARBOPLATIN150 MG IV (14:30)
[2020-12-09] MEDS ORDERED: ONDANSETRON ODT4 MG PO (14:31)
[2020-12-09] MEDS ORDERED: DEXAMETHASONE4 MG PO (14:31)
[2020-12-09] MEDS ORDERED: METOPROLOL TART25 MG PO (14:33)
[2020-12-09] MEDS ORDERED: BENZONATATE100 MG PO (14:34)
[2020-12-09] MEDS ORDERED: HYDROXYZINE HCL50 MG PO (14:35)
--- NOTE | 2020-12-09 14:36 | NUR ---
MED REC COMPLETE
--- NOTE | 2020-12-09 14:41 | NUR ---
PHYS THERAPY WORKING WITH PATIENT AT THIS TIME.
--- NOTE | 2020-12-09 15:00 | NUR ---
Spoke with Brisa and her daughter, Timo. Pt states she lives in mobile home with her spouse. Spouse is a hazmat cdl driver. Daughter is staying with her, granddaughter also visits, and friend also assists. Pt was a new Afib with RVR and converted today. Pt plans on dc to home and daughter will stay with her. Both deny needs for dc and would like to dc tomorrow.
--- NOTE | 2020-12-09 16:02 | NUR ---
PT UP TO [facility] TO HAVE ANOTHER LARGE BM, SEMI SOFT/FORMED THIS TIME. PT REMAINS IN A SINUS RHYTHM AT THIS TIME. CNAs IN ROOM GIVING PATIENT A BATH AT THIS TIME. PT'S DAUGHTER REMAINS IN ROOM WELL. PT IN GOOD SPIRITS.
--- NOTE | 2020-12-09 16:15 | NUR ---
THIS PMO CONSULTANT AND KEVIN TONG HELPED PT WITH A BED BATH. PT ALSO RECEIVED A SHOWER CAP. PT WAS GIVEN A NEW GOWN AND SOCKS. CREAM WAS AAPLIED TO PT'S BURN PER KEVIN MOE. PT IS NOW IN BED. CALL LIGHT IS WITHIN REACH. NO FURTHER NEEDS AT THIS TIME. DAUGHTER IS IN ROOM.
--- NOTE | 2020-12-09 19:30 | NUR ---
RECEIVED REPORT FROM LEVY TOSCANO. pt RESTING IN BED. REQUESTED IMODIUM FOR DIARRHEA. NO FURTHER REQUESTS AT THIS TIME. WHITEBOARD UPDATED. CALL LIGHT WITHIN REACH.
--- NOTE | 2020-12-09 20:00 | NUR ---
pt UP TO TOILET, LOOSE STOOL NOTED. BACK TO BED. SBA. DENIES FEELING DIZZY. CALL LIGHT WITHIN REACH.
--- NOTE | 2020-12-09 20:15 | NUR ---
CALLED MD TO REQUEST PRN FOR DIARRHEA, TO PUT IN ORDER.
--- NOTE | 2020-12-09 20:35 | NUR ---
IN TO DO ASSESSMENT AND MEDICATIONS. pt RESTING IN BED. DENIES PAIN AT THIS TIME. SOB BASELINE. pt REPORTED FEELING COLD, WARM BLANKETS PROVIDED. IVF INFUSING. MEDICATIONS GIVEN (SEE MAR). NO FURTHER REQUESTS AT THIS TIME. CALL LIGHT WITHIN REACH.
--- NOTE | 2020-12-09 20:57 | NUR ---
PATIENT DAUGHTER CALLED REQUESTING INFORMATION REGARDING VISITING RIGHTS STARTING 12/10.
--- NOTE | 2020-12-09 22:52 | NUR ---
ROUNDED ON pt. RESTING IN BED. NO REQUESTS AT THIS TIME. CALL LIGHT WITHIN REACH.
--- NOTE | 2020-12-09 23:52 | NUR ---
CALL LIGHT ON. pt REQUESTED TO GET UP TO VOID. pt AMBULATED SBA TO TOILET. LARGE VOID, MOST MISSED THE HAT. NO BM AT THIS TIME. pt HAD SOME EMESIS OUT. PRN GIVEN FOR NAUSEA. ASSESSMENT DONE. NO CHANGES. CALL LIGHT WITHIN REACH.
--- NOTE | 2020-12-10 05:38 | NUR ---
pt UP TO VOID, SBA. DEPENDS SATURATED. pt REPORTS SLEEPING WELL FOR A WHILE. pt IN GOOD SPIRITS NO CHANGE IN ASSESSMENT. PROVIDED A WARM BLANKET AND FRESH WATER. NO FURTHER REQUESTS AT THIS TIME. CALL LIGHT WITHIN REACH.
--- NOTE | 2020-12-10 08:28 | NUR ---
PATIENT USES CALL LIGHT AND UP TO BATHROOM TO VOID. PT COUGHING AND HAVING PROD SPUTUM WITH SOME DRY HEAVING. THIS IS COMMON FOR PATIENT TO HAVE. NO ACTUAL EMESIS BUT THE THICK SPUTUM CAUSES THE DRY HEAVING. BREAKFAST IN ROOM. PT HAS TRANSFER ORDERS TO THE MEDICAL FLOOR. ASSESSMENT COMPLETE. PT REMAIN IN SINUS RHYTHM WIHT SOME PVCs THROUGH THE NIGHT.
--- NOTE | 2020-12-10 10:06 | NUR ---
PT SITTING UP IN CHAIR AT THIS TIME. PT WILL TRASNFER TO MEDICAL FLOOR TODAY. PHYS THERAPY WILL WORK WITH PATIENT WELL.
--- NOTE | 2020-12-10 12:15 | NUR ---
PATIENT TRANSFERRED TO ROOM 125 VIA CHAIR. PATIENT ON TELE#4. PT REMAINS IN SINUS RHYTHM WITH PVCs, HR IN THE 70s. PT VOIDS PRIOR TO MOVING TO M/S, 150 ML. PT WAITING ON HER LUNCH. REPORT GIVEN TO TAMI BROWN. 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
--- NOTE | 2020-12-10 12:20 | NUR ---
CCU transfer report recieved from KEVIN Walker, pt will be brought over in chair, room prepared by viscose cellar charge hand Maygan.
--- NOTE | 2020-12-10 13:00 | NUR ---
Pt moved to medical floor and settled in room by CCU RN. No change in plan for dc.
--- NOTE | 2020-12-10 13:05 | NUR ---
Pt sitting up in chair w/ call light in reach, VSS on RA. Pt denies any needs at this time.
--- NOTE | 2020-12-10 13:18 | NUR ---
Standby assist from recliner to bed. Warm blankets provided. Denies other needs at this time. Call light in reach, bed rails up X2.
--- NOTE | 2020-12-10 13:41 | NUR ---
PT AWAKE IN ROOM WATCHING TV. PT PLEASANT AND CHATTY. WHITE BOARD UPDATED. CALL LIGHT WITHIN REACH. NO FURTHER NEEDS AT THIS TIME.
--- NOTE | 2020-12-10 14:00 | NUR ---
Steno Pool Supervisor Ophelia in room to evaluate pt.
--- NOTE | 2020-12-10 14:19 | NUR ---
PATIENT STATES SHE HAS HAD SOME WEIGHT LOSS DUE TO CHEMO AND RADIATION FOR LUNCH CANCER. HER APPETITE IS IMPROVING. SHE SAID SHE WOULD HAVE EATEN MORE IF THE WARM FOOD WASN'T SO COLD. SHE ENJOYED HER 1/2 TURKEY SANDWICH AND PEACHES TODAY FOR LUNCH, SHE WILL EAT THE SHERBET LATER. SHE HAS ALSO ENJOYED THE CHICKEN BROTH. PRIOR TO ADMISSION, SHE TRIED SOME NUTRITION DRINKS BUT SAID SHE DID NOT LIKE THEM THEY WERE TOO THICK FOR HER LIKING. I REMINDED HER THAT IT'S IMPORTANT TO EAT ADEQUATE CALORIES TO PREVENT FURTHER WEIGHT LOSS ESPECIALLY SHE IS RECOVERING FROM RADIATION [place]. HER DAUGHTER MADE A POINT TO SAY "EAT ADEQUATE CALORIES EVERY DAY" NOT JUST SOMETIMES. I SUGGESTED SHE MAKE SMOOTHIES OR HER OWN MILKSHAKES AT HOME IN ORDER TO HELP HER GET MORE CALORIES IN. SHE IS ON A REGULAR DIET. BOTH THE PATIENT AND HER DAUGHTER HAVE NO QUESTIONS AT THIS TIME. WILL CONTINUE TO MONITOR.
--- NOTE | 2020-12-10 15:40 | NUR ---
PATIENT FAMILY MEMBER INFORMS STAFF PATIENT IS HAVING CHEST PAIN. PATIENT LYING IN BED. STATES CHEST PAIN BEGAN WHILE SHE WAS JUST STARTING TO FALL ASLEEP. WAS INITIALLY SHARP BUT IS NOW DULL 7/[address] RM NOTIFIED. TELEPHONE ORDER READ BACK DR. RM/Vipul BOWMAN RN, FOR 12 LEAD EKG NOW.
--- NOTE | 2020-12-10 16:30 | NUR ---
PT RESTING IN BED SAFELY W/ CALL LIGHT IN REACH AND EYES CLOSED, RR EVEN AND UNLABORED. IV FLUIDS INFUSING PER PROVIDER ORDER.
--- NOTE | 2020-12-10 19:20 | NUR ---
SHIFT REPORT FROM NURSE GARRETT. PT IS IN BED, AWAKE, WATCHING TV. PT DENIES CARE NEEDS AT THIS TIME BUT DOES REQUEST SHERBET FROM [facility]; SHERBET PROVIDED. CALL LIGHT AND BEDSIDE TABLE WITHIN REACH.
--- NOTE | 2020-12-10 19:34 | NUR ---
PT TRANSFERED FROM CCU THIS AFTERNOON. VSS ON RA, TELE #[address] PER PROVIDER ORDER. PT A+O X3, CALLS APPROPRIATELY, SBA W/FWW. IV FLUIDS INFUSING PER PROVIDER ORDER. PT UP IN CHAIR FOR MEALS. SUFFICIENT URINE OUTPUT FOR SHIFT.
--- NOTE | 2020-12-10 23:10 | NUR ---
CALL LIGHT ANSWERED. PT UP TO TOILET TO VOID. PT REQUESTS PRN ROBITUSSIN WITH CODEINE WHICH IS ADMINISTERED AT THIS TIME. PT DENIES FURTHER NEEDS AT THIS TIME. CALL LIGHT WITHIN REACH.
--- NOTE | 2020-12-11 01:27 | NUR ---
CALL IN TO DR RM; PT IS DRY HEAVING AND HAS NAUSEA, CURRENT PRN ZOFRAN IS NOT AVAILABLE YET. ONE TIME VERBAL ORDER FOR 4MG IV ZOFRAN REPEATED TO DR RM.
--- NOTE | 2020-12-11 01:38 | NUR ---
SHIFT REPORT RECEIVED FROM LORE BROWN. RN IN ROOM PROVIDING MEDS.
--- NOTE | 2020-12-11 01:39 | NUR ---
4MG IV ZOFRAN ADMINISTERED AT THIS TIME. PT SITTING UP IN CHAIR. PT REQUESTS CRACKERS WHICH ARE PROVIDED. CALL LIGHT WITHIN REACH.
--- NOTE | 2020-12-11 03:57 | NUR ---
PT RESTING IN BED. CALL LIGHT IN REACH.
--- NOTE | 2020-12-11 06:58 | NUR ---
PT CALLS TO USE BR. UP TO BR AND BACK TO BED, SBA. NO OTHER NEEDS AT THIS TIME. CALL LIGHT IN REACH.
--- NOTE | 2020-12-11 07:35 | NUR ---
BEDSIDE REPORT...PT RESTING IN BED EYES CLOSED RESPIRATIONS REGULAR 17 BPM. NO DISTRESS NOTED.
--- NOTE | 2020-12-11 08:17 | NUR ---
Patient went to bathroom, SBA. Patient voided 350 ml. Patient bed linens were changed and patient went to chair, SBA while waiting. Patient is now in bed resting with call light in reach. There are no further requests at this time.
--- NOTE | 2020-12-11 10:00 | NUR ---
Spoke with Brisa. She plans on dc today to home. Pt stating, "I want to get the hell out of here". Plans on dc to home, daughter will stay her, as well as several other family and friends. Pt feeling overwhelmed by supportive family. Denies needs for dc. Has cane, walker, wc, shower chair and handrails. Feels safe to go home.
--- NOTE | 2020-12-11 10:18 | NUR ---
Patient vitals were done by RN. I&Os are complete. Call light is in reach and there are no requests at this time.
[2020-12-11] MEDS ORDERED: METOPROLOL SUCC25 MG PO (10:34)
[2020-12-11] MEDS ORDERED: SILVER SULFADIA50 GM TOP (10:36)
--- NOTE | 2020-12-11 11:21 | NUR ---
EDUCATION AND DISCHARGE PACKET GIVEN AT THIS TIME. TALKED ABOUT MEDICATIONS LAST DOSE NEXT DOSE. DISCUSSED SIGNS AND SYMPTOMS TO SEEK MEDICAL ATTENTION. 'S OFFICE WILL CALL PATIENT FOR FOLLOW UP APPOINTMENT. IV SITE REMOVED WNL.
--- NOTE | 2020-12-11 16:14 | EKG ---
[facility] [address] [place] [address] Signed Sinus rhythm with fusion complexes Low voltage QRS Borderline ECG When compared with ECG of 08-DEC-2020 09:54, Sinus rhythm has replaced Atrial fibrillation Vent. rate has decreased BY 98 BPM Confirmed by MARY RM MD ([id number]) on 12/11/2020 4:14:34 PM Electronically Signed By: MARY RM MD 12/11/20 1614 PATIENT NAME: BRITTANI ROME Electrocardiogram DATE OF : 44 PHYSICIAN: MARY RM MD REPORT #: [id number] REPORT IS CONFIDENTIAL AND NOT TO BE RELEASED WITHOUT AUTHORIZATION
== END 2020-12-11 12:15 | disposition home or self-care (01) | DRG 309 ==
LOC: ED 09:53 → CCU 09:54 → MS 12-10 12:05
PROVIDERS: ADMIT Internal Medicine; ATTEND Internal Medicine
DX: I48.91 Unspecified atrial fibrillation (principal); C34.92 Malignant neoplasm of unspecified part of left bronchus or lung; Z20.822 Contact with and (suspected) exposure to COVID-19; E86.0 Dehydration; Z85.3 Personal history of malignant neoplasm of breast; Z98.890 Other specified postprocedural states; Z87.891 Personal history of nicotine dependence; Z79.899 Other long term (current) drug therapy
CPT/HCPCS: 71045; 80048; 80053; 80500; 83735; 84484; 85007; 85025; 93005; 93010; 94760; 96374; 97110; 97116; 97162; 99285-25; A9270-GY; C9803; J1170; J2405; J7030; J7040; U0003

== ENCOUNTER 2020-12-18 15:23 | Observation (INO) | payer MEDICARE ==
[~2020-12-18] VITALS: Ht 157.5 cm; Wt 65.1 kg
[~2020-12-18 15:23] MED LIST changes: +BENZONATATE100 MG PO; +CARBOPLATIN150 MG IV; +DEXAMETHASONE4 MG PO; +EMEND150 MG IV; +GABAPENTIN100 MG PO; +HYDROXYZINE HCL50 MG PO; +LIDOCAINE HCL100 ML PO; +METOPROLOL SUCC25 MG PO; +ONDANSETRON ODT4 MG PO; +PACLITAXEL6 MG/1 ML IV; +SILVER SULFADIA50 GM TOP; +[UNRECOGNIZED DRUG - OTHER] IV
--- OUTSIDE RECORDS SUMMARY | 2020-12-18 15:26 | XMS ---
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 - 2 Visits in 30 Days CARE PROVIDERS GONZALEZ COLLAZO [facility] 11/19/2020-Current PHONE: [phone] Jj has no Care Guidelines for this patient. Care History Medical/Surgical 11/19/2020 [facility] - Patient is currently established with [facility]. If patient is seen in the ED during business hours. Please contact CHWs at [facility]. Care Recommendation: If this patient has [...] providing care. E.D. VISIT COUNT (12 MO.) 4 [facility] TOTAL 4 NOTE: Visits indicate total known visits. ED/UCC VISIT TRACKING (12 MO.) 12/18/2020 15:24 [facility] [place] TYPE: Emergency COMPLAINT: - WEAKNESS 12/08/2020 09:53 [facility] [place] TYPE: Emergency COMPLAINT: - IRREGULARE HEART RATE 11/18/2020 15:47 [facility] [place] TYPE: Emergency COMPLAINT: - CHEST PAIN 08/17/2020 10:59 [facility] [place] TYPE: Emergency COMPLAINT: - DIFFICULTY BREATHING DIAGNOSES: - Other nonspecific abnormal finding of lung field - Shortness of breath INPATIENT VISIT TRACKING (12 MO.) 12/09/2020 08:10 [facility] [place] TYPE: Medical Surgical COMPLAINT: - AFIB W/ RVR DIAGNOSES: - Other detention (current) drug therapy - Other intermediate card tender (current) drug therapy - Personal history of nicotine dependence - Malignant neoplasm of unspecified part of left bronchus or lung - Dehydration - Personal history of nicotine dependence - Other specified postprocedural states - Unspecified atrial fibrillation - Personal history of malignant neoplasm of breast - Personal history of malignant neoplasm of breast - Dehydration - Other specified postprocedural states - Malignant neoplasm of unspecified part of left bronchus or lung 11/18/2020 15:48 [facility] [place] TYPE: Observation COMPLAINT: - AFIB W/ RVR DIAGNOSES: - Dehydration - Malignant neoplasm of unspecified part of unspecified bronchus or lung - Neoplasm related pain (acute) (chronic) - Unspecified atrial fibrillation - Anxiety disorder, unspecified - Urinary tract infection, site not specified [id number]
--- NOTE | 2020-12-18 23:26 | NUR ---
PATIENT ARRIVED TO THE FLOOR VIA STRETCHER. PATIENT WAS ABLE TO TRANSFER FROM STRETCHER TO HOSPITAL BED WITH NO ASSISTANCE. ADMISSION COMPLETED. SCHEDULED MEDICATION GIVEN PER ORDER. PATIENT UP TO BSC TO VOID WITH NO ASSISTANCE. PATIENT IS ABCK IN BED RESTING. PATIENT REPORTS PAIN AND NAUSEA. PRN MEDICATION GIVEN PER ORDER. PATIENT PLACED ON TELE #8. IV INFUSING PER ORDER. PATIENT DENIES ANY SOB. NEW IV STTARTED. PRESENT AT THE BEDSIDE. NO FURTHER NEEDS NOTED. CALL LIGHT IN REACH.
--- NOTE | 2020-12-19 00:32 | NUR ---
PATIENT IS RESTING IN BED WITH EYES CLOSED, RR 17. IS AT BEDISDE. NO NEEDS NOTED. CALL LIGHT IN REACH.
--- NOTE | 2020-12-19 02:36 | NUR ---
VITALS TAKEN AND RECORDED INTAKE AND OUPUT RECORDED. PATIENTS SCHEDULED MEDICATIONS GIVEN PER ORDER. PATIENT REPORTS 9/10 PAIN IN HER BACK. PATIENT GIVEN PRN PAIN MEDICAITON PER ORDER. PATIENT ASSISTED TO THE BSC. PATEINT ABLEL TO VOID. PATIENT IS BACK IN BED RESTING. NO FURTHER NEEDS NOTED. CALL LIGHT IN REACH.
--- NOTE | 2020-12-19 08:00 | NUR ---
0700 RECEIVED REPORT, NO NEW COCNERNS NOTED. AT THIS TIME I WILL HOLD CARDIAZEM DUE TO LOW BP. WILL TAKE V/S AGAIN AT 0830. LLL VERY DIMINISHED, ALL OTHER LOBES CLEAR, ABD SOUNDS HYPOACTIVE, PT DENIES ABD PAIN THOUGH, LAST BM 12/18/20. NO PERIPH. EDEMA NOTED, LEFT MID BACK HAS RADIATION BURN PRESENT.
--- NOTE | 2020-12-19 08:28 | NUR ---
MED REC COMPLETE
--- NOTE | 2020-12-19 09:09 | NUR ---
SPOKE WITH PATIENT IN ROOM. PATIENT FEELING BETTER, HOPES TO GO HOME TODAY. DOES NOT HAVE A GOOD APPETITE, BUT STATES THAT IS NORMAL. SHE LIVES WITH HER . HAS A DAUGHTER CLOSE BY WHO HELPS THEM NEEDED. SHE DOES NOT USE DME, BUT STATES THEY HAVE THINGS IF SHE NEEDS THEM SUCH A WALKER, WHEELCHAIR. THEY HAVE A RAIL FOR THE FEW STEPS INTO HOME. SHE STATES SHE AMBULATES INDEPENDENTLY AND HAS NO TROUBLE IN HOUSE WITH BATHROOM ETC. SHE GOES TO DR COLLAZO FOR PCP. SHE FEELS SAFE TO RETURN HOME. SHE DRIVES AND HER FAMILY WILL PICK HER UP AT DISCHARGE. SHE FEELS THEY ARE OK FOR FOOD AND UTILITIES. BUT SHE STATES SHE DOES NOT HAVE INSURANCE FOR MEDICATIONS AND SOMETIMES HAS TROUBLE AFFORDING THEM. SHE USES [facility]. STATES SHE HAS TRIED USING A [employer] CARD, BUT WAS TOLD THEY DID NOT TAKE IT. DISCUSSED I WILL LET OUR PHARMACY KNOW HER CONCERNS. ALSO THAT HER PCP CLINIC HAS CHW PROGRAM AND THEY CAN WORK WITH HER ON RESOURCES. SHE IS WILLING TO WORK WITH THEM AFTER DISCHARGE. SHE HAS NO OTHER CONCERNS AT THIS TIME. SPOKE WITH PARKER FROM OUR PHARMACY OF PATIENTS CONCERNS. EMAILED CLINIC CHW BRANDI TO ASK THEM TO CONTACT PATIENT AFTER DISCHARGE. POSSIBLY DISCHARGE TODAY.
--- NOTE | 2020-12-19 14:54 | EKG ---
[facility] [address] [facility] [facility] [place] [address] Signed Sinus rhythm with frequent premature ventricular complexes Otherwise normal ECG When compared with ECG of 10-DEC-2020 15:46, fusion complexes are no longer present premature ventricular complexes are now present Confirmed by SWEETIE PACHECO DO ([id number]) on 12/19/2020 2:54:40 PM Electronically Signed By: SWEETIE PACHECO DO 12/19/20 1454 PATIENT NAME: BRITTANI ROME Electrocardiogram DATE OF : 44 PHYSICIAN: SWEETIE PACHECO DO REPORT #: [id number] REPORT IS CONFIDENTIAL AND NOT TO BE RELEASED WITHOUT AUTHORIZATION
== END 2020-12-19 10:30 | disposition home or self-care (01) ==
LOC: ED 15:23 → MS 15:25
PROVIDERS: ADMIT Student in an Organized Health Care Education/Training Program; ATTEND Student in an Organized Health Care Education/Training Program
DX: I48.91 Unspecified atrial fibrillation (principal); C34.90 Malignant neoplasm of unspecified part of unspecified bronchus or lung; Z87.891 Personal history of nicotine dependence; Z20.822 Contact with and (suspected) exposure to COVID-19
CPT/HCPCS: 70450; 71045; 80048; 80053; 80500; 81001; 83690; 83735; 84484; 85025; 93005; 93010; 96365; 96375; 99285-25; C9803; J2405; J3475; J7030; J7121; U0003

== ENCOUNTER 2021-01-12 05:05 | Emergency (ER) | payer MEDICARE ==
[~2021-01-12] VITALS: Ht 157.5 cm; Wt 63.0 kg
--- OUTSIDE RECORDS SUMMARY | 2021-01-12 05:08 | XMS ---
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 Care History Medical/Surgical 11/19/2020 [facility] - Patient is currently established with [facility]. If patient is seen in the ED during business hours. Please contact CHWs at [facility]. Care Recommendation: If this patient has had [...] providing care. E.D. VISIT COUNT (12 MO.) 5 [facility] TOTAL 5 NOTE: Visits indicate total known visits. ED/UCC VISIT TRACKING (12 MO.) 01/12/2021 05:05 [facility] [place] TYPE: Emergency COMPLAINT: - FALL 12/18/2020 15:24 [facility] [place] TYPE: Emergency COMPLAINT: - WEAKNESS 12/08/2020 09:53 [facility] [place] TYPE: Emergency COMPLAINT: - IRREGULARE HEART RATE 11/18/2020 15:47 [facility] [place] TYPE: Emergency COMPLAINT: - CHEST PAIN 08/17/2020 10:59 [facility] [place] TYPE: Emergency COMPLAINT: - DIFFICULTY BREATHING DIAGNOSES: - Other nonspecific abnormal finding of lung field - Shortness of breath INPATIENT VISIT TRACKING (12 MO.) 12/18/2020 15:25 [facility] [place] TYPE: Observation COMPLAINT: - A-FIB DIAGNOSES: - Unspecified atrial fibrillation - Personal history of nicotine dependence - Malignant neoplasm of unspecified part of unspecified bronchus or lung 12/09/2020 08:10 [facility] [place] TYPE: Medical Surgical COMPLAINT: - AFIB W/ RVR DIAGNOSES: - Other electrolysis operator (current) drug therapy - Other detention (current) drug therapy - Personal history of [...] - Urinary tract infection, site not specified [id number]
== END 2021-01-12 06:37 | disposition home or self-care (01) ==
LOC: ED 05:05
DX: T14.8XXA Other injury of unspecified body region, initial encounter (principal); I48.91 Unspecified atrial fibrillation; W18.30XA Fall on same level, unspecified, initial encounter; Z85.3 Personal history of malignant neoplasm of breast; Z87.891 Personal history of nicotine dependence; Z79.899 Other long term (current) drug therapy; Z79.01 Long term (current) use of anticoagulants
CPT/HCPCS: 70450; 71045; 73030; 73130; 73502; 99284-25

== ENCOUNTER 2021-02-22 16:46 | Emergency (ER) | payer MEDICARE ==
[~2021-02-22] VITALS: Ht 157.5 cm; Wt 59.0 kg
--- OUTSIDE RECORDS SUMMARY | 2021-02-22 16:48 | XMS ---
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 Patient has appt with Dr. Alvarado on 01/29/2021. Care History Medical/Surgical 11/19/2020 [facility] - Patient is currently established with [facility]. If patient is seen in the ED during business hours. Please contact CHWs at [facility]. Care Recommendation: If this patient has had [...] providing care. E.D. VISIT COUNT (12 MO.) 1 [facility] 6 [facility] TOTAL 7 NOTE: Visits indicate total known visits. ED/UCC VISIT TRACKING (12 MO.) 02/22/2021 16:47 [facility] [place] TYPE: Emergency COMPLAINT: - HEAD PAIN,FALL 02/17/2021 12:10 [facility] [place] TYPE: Emergency DIAGNOSES: - Chest Pain - Chest pain, unspecified 01/12/2021 05:05 [facility] [place] TYPE: Emergency COMPLAINT: - FALL DIAGNOSES: - Fall on same level, unspecified, initial encounter - Contusion of left front wall of thorax, initial encounter - Contusion of left shoulder, initial encounter - Unspecified atrial fibrillation - terminal make up operator (current) use of anticoagulants - Contusion of left hip, initial encounter - Contusion of right shoulder, initial encounter - Personal history of nicotine dependence - Other injury of unspecified body region, initial encounter - Pain in right shoulder - Personal history of malignant neoplasm of breast - Other custodial (current) drug therapy 12/18/2020 15:24 [facility] [place] TYPE: Emergency COMPLAINT: - WEAKNESS 12/08/2020 09:53 [facility] [place] TYPE: Emergency COMPLAINT: - IRREGULARE HEART RATE 11/18/2020 15:[address] [facility] [address] [place] TYPE: Emergency COMPLAINT: - CHEST PAIN 08/17/2020 10:[address] [facility] [address] [place] TYPE: Emergency COMPLAINT: - DIFFICULTY BREATHING DIAGNOSES: - Other nonspecific abnormal finding of lung field - Shortness of breath INPATIENT VISIT TRACKING (12 MO.) 12/18/2020 15:[address] [facility] [address] [place] TYPE: Observation COMPLAINT: - A-FIB DIAGNOSES: - Unspecified atrial fibrillation - Personal history of nicotine dependence - Malignant neoplasm of unspecified part of unspecified bronchus or lung 12/09/2020 08:[address] [facility] [address] [place] TYPE: Medical Surgical COMPLAINT: - AFIB W/ RVR DIAGNOSES: - Other custodial (current) drug therapy - Other intermediate designer (current) drug therapy - Personal history of [...] - Urinary tract infection, site not specified [id number]
[2021-02-22] MEDS ORDERED: MIRTAZAPINE15 MG PO (17:06)
[2021-02-22] MEDS ORDERED: ELIQUIS5 MG PO (17:07)
== END 2021-02-22 19:59 | disposition home or self-care (01) ==
LOC: ED 16:46
DX: S09.90XA Unspecified injury of head, initial encounter (principal); S30.0XXA Contusion of lower back and pelvis, initial encounter; C34.90 Malignant neoplasm of unspecified part of unspecified bronchus or lung; M25.512 Pain in left shoulder; I48.91 Unspecified atrial fibrillation; Z85.3 Personal history of malignant neoplasm of breast; Z90.710 Acquired absence of both cervix and uterus; Z90.89 Acquired absence of other organs; Z79.899 Other long term (current) drug therapy; Z79.01 Long term (current) use of anticoagulants; W01.0XXA Fall on same level from slipping, tripping and stumbling without subsequent striking against object, initial encounter
CPT/HCPCS: 70450; 72192; 73030; 99284-25; A9270-GY

== ENCOUNTER 2021-02-24 11:10 | Emergency (ER) | payer MEDICARE ==
[~2021-02-24] VITALS: Ht 157.5 cm; Wt 59.0 kg
[~2021-02-24 11:10] MED LIST changes: +MIRTAZAPINE15 MG PO
--- OUTSIDE RECORDS SUMMARY | 2021-02-24 11:18 | XMS ---
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 Patient has appt with Dr. Alvarado on 01/29/2021. Care History Medical/Surgical 11/19/2020 [facility] - Patient is currently established with [facility]. If patient is seen in the ED during business hours. Please contact CHWs at [facility]. Care Recommendation: If this patient has [...] care. E.D. VISIT COUNT (12 MO.) 1 [facility] 7 [facility] TOTAL 8 NOTE: Visits indicate total known visits. ED/UCC VISIT TRACKING (12 MO.) 02/24/2021 11:10 [facility] [place] TYPE: Emergency COMPLAINT: - DEHYRATED 02/22/2021 16:47 [facility] [place] TYPE: Emergency COMPLAINT: - HEAD PAIN,FALL 02/17/2021 12:10 [facility] [place] TYPE: Emergency DIAGNOSES: - Chest Pain - Chest pain, unspecified 01/12/2021 05:05 [facility] [place] TYPE: Emergency COMPLAINT: - FALL DIAGNOSES: - Fall on same level, unspecified, initial encounter - Contusion of left front wall of thorax, initial encounter - Contusion of left shoulder, initial encounter - Unspecified atrial fibrillation - USP (current) use of anticoagulants - Contusion of left hip, initial encounter - Contusion of right shoulder, initial encounter - Personal history of nicotine dependence - Other injury of unspecified body region, initial encounter - Pain in right shoulder - Personal history of malignant neoplasm of breast - Other fpc (current) drug therapy 12/18/2020 15:24 [facility] [place] TYPE: Emergency COMPLAINT: - WEAKNESS 12/08/2020 09:53 [facility] [place] TYPE: Emergency COMPLAINT: - IRREGULARE HEART RATE 11/18/2020 15:47 [facility] [place] TYPE: Emergency COMPLAINT: - CHEST PAIN 08/17/2020 10:[address] [facility] [address] [facility] [place] TYPE: Emergency COMPLAINT: - DIFFICULTY BREATHING DIAGNOSES: - Other nonspecific abnormal finding of lung field - Shortness of breath INPATIENT VISIT TRACKING (12 MO.) 12/18/2020 15:[address] [facility] [address] [place] TYPE: Observation COMPLAINT: - A-FIB DIAGNOSES: - Unspecified atrial fibrillation - Personal history of nicotine dependence - Malignant neoplasm of unspecified part of unspecified bronchus or lung 12/09/2020 08:10 [facility] [place] TYPE: Medical Surgical COMPLAINT: - AFIB W/ RVR DIAGNOSES: - Other emt intermediate (current) drug therapy - Other emt intermediate (current) drug therapy - Personal history of [...] - Urinary tract infection, site not specified [id number]
[2021-02-24] MEDS ORDERED: CEPHALEXIN500 M1 PO (14:52)
== END 2021-02-24 16:30 | disposition home or self-care (01) ==
LOC: ED 11:10
DX: N39.0 Urinary tract infection, site not specified (principal); I48.91 Unspecified atrial fibrillation; Z85.3 Personal history of malignant neoplasm of breast; Z87.891 Personal history of nicotine dependence; Z90.710 Acquired absence of both cervix and uterus; Z90.89 Acquired absence of other organs; Z79.899 Other long term (current) drug therapy; Z79.01 Long term (current) use of anticoagulants
CPT/HCPCS: 81001; 87088; 96365; 96375; 99284-25; J0696; J2405; J7030

== ENCOUNTER 2021-03-18 15:02 | Inpatient (IN) | payer MEDICARE ==
[~2021-03-18] VITALS: Ht 157.5 cm; Wt 56.8 kg
[~2021-03-18 15:02] MED LIST changes: +CEPHALEXIN500 M1 PO
[2021-03-18] MEDS ORDERED: PROCHLORPERAZINE5 MG PO (15:15)
[2021-03-18] MEDS ORDERED: ELIQUIS5 MG PO (15:15)
--- OUTSIDE RECORDS SUMMARY | 2021-03-18 15:52 | XMS ---
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 Patient has appt with Dr. Alvarado on 01/29/2021. Care History Medical/Surgical 02/26/2021 [facility] Follow up visits with Dr. Alvarado on 02/26/[address] Hsu on 202011/19/2020 [facility] - Patient is currently established with [facility]. If patient is seen in the ED during business hours. Please contact CHWs at [facility]. Care Recommendation: If this patient [...] care. E.D. VISIT COUNT (12 MO.) 1 [facility] 8 [facility] TOTAL 9 NOTE: Visits indicate total known visits. ED/UCC VISIT TRACKING (12 MO.) 03/18/2021 15:03 [facility] [place] TYPE: Emergency COMPLAINT: - LOW BP, NAUSEA, POSS CARDIAC ISSUE 02/24/2021 11:10 [facility] [place] TYPE: Emergency COMPLAINT: - DEHYRATED DIAGNOSES: - Acquired absence of both cervix and uterus - Acquired absence of other organs - Unspecified atrial fibrillation - nursing home (current) use of anticoagulants - Urinary tract infection, site not specified - Other fpc (current) drug therapy - Personal history of nicotine dependence - Personal history of malignant neoplasm of breast - Weakness 02/22/2021 16:47 [facility] [place] TYPE: Emergency COMPLAINT: - HEAD PAIN,FALL DIAGNOSES: - Malignant neoplasm of unspecified part of unspecified bronchus or lung - Unspecified injury of head, initial encounter - Personal history of malignant neoplasm of breast - Pain in left shoulder - Acquired absence of other organs - Fall on same level from slipping, tripping and stumbling without subsequent striking against object, initial encounter - Unspecified atrial fibrillation - intermediate frame tender (current) use of anticoagulants - Contusion of lower back and pelvis, initial encounter - Headache, unspecified - Acquired absence of both cervix and uterus - Other fpc (current) drug therapy 02/17/2021 12:10 [facility] [place] TYPE: Emergency DIAGNOSES: - Chest Pain - Chest pain, unspecified 01/12/2021 05:05 [facility] [place] TYPE: Emergency COMPLAINT: - FALL DIAGNOSES: - Fall on same level, unspecified, initial encounter - Contusion of left front wall of thorax, initial encounter - Contusion of left shoulder, initial encounter - Unspecified atrial fibrillation - nursing home (current) use of anticoagulants - Contusion of left hip, initial encounter - Contusion of right shoulder, initial encounter - Personal history of nicotine dependence - Other injury of unspecified body region, initial encounter - Pain in right shoulder - Personal history of malignant neoplasm of breast - 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 [facility] [place] TYPE: Observation COMPLAINT: - AFIB W/ RVR DIAGNOSES: - Dehydration - Malignant neoplasm of unspecified part of unspecified bronchus or lung - Neoplasm related pain (acute) (chronic) - Unspecified atrial fibrillation - Anxiety disorder, unspecified - Urinary tract infection, site not specified [id number]
[2021-03-18] MEDS ORDERED: ONDANSETRON HCL4 MG PO (16:06)
[2021-03-18] MEDS ORDERED: AMOXICILLIN500 MG PO (16:07)
--- NOTE | 2021-03-18 19:45 | NUR ---
REPORT RECIEVED FROM KEVIN RAMIREZ. PATIENT BEING TRANSPORTED TO CRITICAL CARE.
--- NOTE | 2021-03-18 20:10 | NUR ---
PATIENT ARRIVED TO UNIT. PATIENT ASSESSMENT COMPLETE. ALERT AND ORIENTED X4. LUNG SOUNDS ARE COURSE THROUGHOUT. RR IS 20-30. OXYGEN SATURATIONS 95-100 ON ROOM AIR. HEART RATE IS 100-140 BPM. A-FIB RHYTHM. AFEBIRLE. PATIENT DENIES SHORTNESS OF BREATH AND PAIN. URINE OUTPUT IS YELLOW AND CONCENTRATED. BOWEL TONES ARE ACTIVE. PATIENT IV SITE IS PATENT. PATIENT SKIN IS INTACT. PLAN OF CARE UPDATED. CALL LIGHT WITHIN REACH NO FUTHER NEEDS.
--- NOTE | 2021-03-18 20:33 | NUR ---
REPORTED PATIENT'S CURRENT HR 130'S-150'S, A.FIB. CURRENT BP AND URINE OUTPUT TO .
--- NOTE | 2021-03-18 20:50 | NUR ---
LOPRESSOR 2.5 MG GIVEN. PATIENT SITTING IN BED EATING. MEDICATIONS INFUSING ORDERED.
--- NOTE | 2021-03-18 22:10 | NUR ---
MD NOTIFIED ABOUT HR 130-140'S MAINTAIN AFTER LOPRESSOR GIVEN. ALSO NOTIFIED ABOUT BLOOD PRESSURES. NO NEW ORDERS. WILL CONTINUE TO MONITOR.
--- NOTE | 2021-03-19 00:06 | NUR ---
PATIENT ASSESSMENT COMPLETE. PATIENT TRANSFERED TO COMMODE. ALERT AND ORIENTED X4. LUNG SOUNDS ARE COURSE THROUGHOUT. PATIENT DENIES SHORTNESS OF BREATH OR PAIN. RR IS 20-30. OXYGEN SATURATIONS ARE WNL. HEART RATE IS 130-140 BPM IN A-FIB. BLOOD PRESSURES ARE SOFT MAP IS ABOVE 60. AFEBRILE. NO URINE THIS TIME. STILL NEED TO OBTAIN URINE SAMPLE AND SPUTUM CULTURE. NO BM. BOWEL TONES ARE ACTIVE. PLAN OF CARE UPDATED. CALL LIGHT WITHIN REACH NO FUTHER NEEDS.
--- NOTE | 2021-03-19 02:26 | NUR ---
MD MADE AWARE OF LOW BP'S, SCHEDULED LOPRESSOR HELD. ORDERS RECEIVED AND STARTED FOR 500ML BOLUS AND ALBUMIN 25% ADMINISTRATION. PT SLEEPING, NO APPARENT DISTRESS.
--- NOTE | 2021-03-19 04:32 | NUR ---
PT WOKE WHILE I WAS ADJUSTING BP CUFF TO RE-CHECK BP. PT C/O 5/10 GENERALIZED PAIN, PRN TYLENOL GIVEN. NO FURTHER REQUESTS.
--- NOTE | 2021-03-19 07:30 | NUR ---
RECEIVED REPORT AT 0700. PT WAS RESTING IN BED.
--- NOTE | 2021-03-19 08:30 | NUR ---
PT WAS WOKEN UP FOR ASSESSMENT AND MEDS. V/S WDL, URINE OUTPUT WDL, ALL LOBES ARE COARSE. PT WAS ABLE TO PRODUCE A VERY SMALL SPUTUM SAMPLE. PT DENIES SOB AND PAIN. PT HAS TRACE RYDER. LOWER LEG EDEMA PRESENT. OVERALL PT IS WEAK AND EASLY FALLS BACKWARDS. WILL CONTINUE TO MONITOR.
--- NOTE | 2021-03-19 10:00 | NUR ---
PT IN BED WATCHING TV. IV SITE HAD TO BE RE-DRESSED SINCE IT CAUSED PT PAIN. THE OLD DRESSING WAS PULLING ON HER SKIN. URINE OUTPUT IS WDL. PT DENIES PAIN. NO NEW CONCENRS NOTED AT THIS TIME.
--- NOTE | 2021-03-19 12:00 | NUR ---
CHANDA HAS RATTLE PRESEENT, LLL IS TIGHT AND DIMINISHED, ALL OTHER LOBES ARE COARSE AT THIS TIME. PT DENIES SOB THOUGH. NO NEW CONCERNS WERE NOTED WITH THIS ASSESSMENT. WILL CONTINUE TO MONITOR.
[2021-03-19] MEDS ORDERED: WARFARIN SODIUM5 MG (13:15)
[2021-03-19] MEDS ORDERED: METOPROLOL SUCC25 MG PO (13:17)
--- NOTE | 2021-03-19 13:23 | NUR ---
MED REC COMPLETED BY PHARMACY
--- NOTE | 2021-03-19 14:00 | NUR ---
PT IN BED RESTING.
--- NOTE | 2021-03-19 15:40 | NUR ---
Spoke with Brisa. She states she lives with her spouse and he is her caregiver. She uses a wc and cannot walk. History of lung cancer with chemo and she has not tolerated well. She is very concerned about finances. She declined meals on wheels, declines use of food bank, declines info for [employer] to check if there is any assistance available. I spoke with Rn and spouse is gone for the day. Will attempt to speak with him tomorrow. Pt plans on dc to home with spouse when cleared medically.
--- NOTE | 2021-03-19 16:00 | NUR ---
PT IN BED RESTING WITH EYES CLOSED.
--- NOTE | 2021-03-19 16:30 | NUR ---
PT AT THIS TIME HAS O2 SATS AT 87% ON RA. PT ALSO STATED THAT SHE IS FEELING SOB. 2L O2 NC WERE PUT ON PT. O2 SATS NOW WDL. LOWER LOBES AT THIS TIME VERY DIMINISHED AND TIGHT. UPPER LOBES CLEAR. RR WDL, OTHER V/S WDL AT THIS TIME. ASSESSMENT HAD NO OTHER CONCERNS SHOWN. MD PACHECO AWARE. WILL CONTINUE TO MONITOR.
--- NOTE | 2021-03-19 18:00 | NUR ---
PT BACK ON ROOM AIR AT THIS TIME WITH O2 SATS >92%. PT IS EATING DINNER AT THIS TIME. APPETITE HAS BEEN POOR OVERALL. WILL CONTINUE TO MONITOR.
--- NOTE | 2021-03-19 20:47 | NUR ---
PT SCHEDULED FOR Q6H LOPRESSOR, BP MAPS HAVE BEEN 54-63 OVER THE LAST 3 HOURS. DISCUSSED MEDICATION AND BP WITH DR. WEBSTER, 1999 LOPRESSOR ADMINISTRATORED. MAY HOLD 0200 DOSE IF MAPS IN THE 50s. WILL CONTINUE TO MONIOTR.
--- NOTE | 2021-03-19 21:17 | EKG ---
[facility] [address] [place] [address] Signed Atrial fibrillation with rapid ventricular response Low voltage QRS Septal infarct , age undetermined Abnormal ECG When compared with ECG of 18-DEC-2020 15:32, Atrial fibrillation has replaced Sinus rhythm Vent. rate has increased BY 86 BPM Septal infarct is now present Nonspecific T wave abnormality now evident in Inferior leads Nonspecific T wave abnormality now evident in Lateral leads Confirmed by SWEETIE PACHECO DO ([id number]) on 03/19/2021 9:17:25 PM Electronically Signed By: SWEETIE PACHECO DO 03/[id number] PATIENT NAME: BRITTANI ROME Electrocardiogram DATE OF : 44 PHYSICIAN: SWEETIE PACHECO DO REPORT #: [id number] REPORT IS CONFIDENTIAL AND NOT TO BE RELEASED WITHOUT AUTHORIZATION
--- NOTE | 2021-03-19 22:41 | NUR ---
PT GIVEN TESSALON PEARLS PER REQUEST FOR NONPRODUCTIVE COUGH. NO OTHER COMPLAINTS AT THIS TIME. WILL CONTINUE TO MONJINTR.
--- NOTE | 2021-03-20 07:30 | NUR ---
RECEIVED REPORT AT 0700. PT IN ROOM RESTING. NO NEW CONCERNS NOTED AT THIS TIME.
--- NOTE | 2021-03-20 08:30 | NUR ---
OVERALL PT HAS NO NEW COMPLAINTS. PT DOES HAVE SOME O2 NEED AT TIMES. V/S WDL, URINE OUPUT WDL, UPPER LOBES CLEAR, LOWER LOBES TIGHT AND DIMINISHED. ABD SOUNDS PRESENT. PT DOES HAVE SOME PVC'S AT TIMES. OT IN ROOM. PT UP SITTING IN CHAIR.
--- NOTE | 2021-03-20 09:09 | NUR ---
LINENS CHANGED. PT REMAINS UP TO CHAIR VISITING WITH OCCUAPATIONAL THERAPY. PT REPORTS PAIN AT IV SITE. PTS PRIMARY RN UPDATED AND STATES SHE IS ALREADY HANDELING IV SITUATION. NO ADDIITONAL REQUESTS OR COMPLAINTS. CALL LIGHT GENEVIEVE SIMPSON. PT REMAINS UP TO CHAIR.
--- NOTE | 2021-03-20 09:31 | NUR ---
OCCUPATIONAL THERAPY TO NURSES STATION STATING PT IS REPORTING NAUSEA. EMESIS BAG PROVIDED. ZOFRAN GIVEN. IV FLUSHES EASILY. PT REPORTS ONE BITE OF YOGURT "DIDN'T SETTLE WELL." BREAKFAST TRAY REMOVED. PT DID NOT EAT ANYTHING BUT THE ONE BITE. TEA REMAINS AT BEDSIDE. WARM BLANKETS PROVIDED PER PT REQUEST. NO ADDITIONAL REQUESTS OR COMPLAINTS. PT REMAINS UP TO CHAIR. CALL LIGHT WITHIN REACH.
--- NOTE | 2021-03-20 10:05 | NUR ---
PT CONTINUES TO REPORT PAIN AT RIGHT UPPER ARM IV SITE. IV FLUSHES WELL. PTS PRIMARY RN STATES TO LEAVE IV IN PLACE TO ALLOW ABX TO FINISH. NEW IV STARTED IN LEFT HAND PER PROTOCOL, BLOOD RETURN NOTED. MEDICATIONS GIVEN (SEE MAR). PT REPORTS NAUSEA HAS RESOLVED AND REQUESTS TYELNOL FOR 9/10 BACK PAIN. PT ENCORAUGED TO TRY A CRACKER PRIOR TO MEDICAITON ADMINISTRATION. PT TOELRATES CRACKER AND SWALLOWS ONE PILL AND THEN BEGINS VOMITING. 200ML LIGHT PINK EMESIS NOTED. PT REPORTS SHE TRIED A FEW SIPS OF CLEAR ENSURE. PHENGRAN GIVEN. UPDATED REGARDING PTS INTOLERANCE OF POTASSIUM AND MISSED DOES. PT REPORTS FEELING VERY COLD, ADDITIONAL WARM BLANKETS PROVIDED. PTS PRIMARY RN, JORDEN, UPDATED. NO ADDITIONAL REQUESTS OR COMPLAINTS. CALL LIGHT WITHIN REACH. PT REMAINS UP TO CHAIR.
--- NOTE | 2021-03-20 10:30 | NUR ---
WHILE ON BREAK, PT HAD A COUPLE OF EMESIS EPISODES. PT IS NOT ABLE TO KEEP AN PO INTAKE DOWN THIS MORNING. AWARE FAR I KNOW.
--- NOTE | 2021-03-20 11:46 | NUR ---
BEDBATH DONE. LINNENS CHANGED. K+ INFUSION HAD TO BE STOPPED DUE TO PAIN AT HER LEFT HAND IV SITE. VANCO STILL INFUSING. AT BEDSIDE. WAITING ON MRSA SWAB FROM THE LAB.
--- NOTE | 2021-03-20 12:12 | NUR ---
NO NEW CONCERNS NOTED WITH ASSESSMENT NOTED. WILL TRY A MILKSHAKE WITH ENSURE. V/S WDL OVERALL.
--- NOTE | 2021-03-20 12:18 | NUR ---
DR PACHECO IN WITH PT. WILL CHECK BACK
--- NOTE | 2021-03-20 12:19 | NUR ---
TRANSFER ORDERS RECEIVED. PT WILL GO TO ROOM #122.
--- NOTE | 2021-03-20 12:30 | NUR ---
THIS RN RECEIVED REPORT FROM SHRUTI BROWN FROM CCU.
--- NOTE | 2021-03-20 13:24 | NUR ---
PT LEFT CCU AT 1320. PT WENT TO ROOM 123. REPORT WAS GIVEN TO AVA BROWN.
--- NOTE | 2021-03-20 13:38 | NUR ---
PT ARRIVED TO FLOOR FROM CCU VIA BED. PT AT BEDSIDE. VITALS TAKEN AND STABLE. ORIENTED TO ROOM, CALL LIGHT IN REACH. DENEIS NEEDS.
--- NOTE | 2021-03-20 14:00 | NUR ---
THIS RN IN PTS ROOM TO ASSESS PT. PT STATES THAT SHE IS DOING WELL JUST COLD. IV THERAPY NURSES NATHAN AND SHEMAR TO [facility] ON PTS IV STATUS, THEY STATE PT SHOULD BE GOOD ON IVS FOR A BIT. PHYSCIAL THERAPY IN ROOM TO SEE PT. PT AGREED TO WORKING WITH THERAPY
--- NOTE | 2021-03-20 14:30 | NUR ---
Spoke with pt and her spouse, Everardo. Everardo is on the phone when I enter, trying to get hired for a job. 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 He declines assist with medicaid as he states he spoke with [facility] and was told he would have to put his home up for sale. We discussed [employer] and I will call them to check what programs they would have available for this pt. He states if he returns to work he will take his to her daughter's daily. He is attempting to find a driving position here in town. Called [employer] and they have closed for the day. Message left with pts name and phone number.
--- NOTE | 2021-03-20 15:00 | NUR ---
THIS RN IN PTS ROOM TO RESTART PTS ANTIBIOTIC. PT STATES TAHT SHE IS DOING WELL BUT NOW STATES THAT SHE NEEDS TO USE THE COMMODE. THIS RN ASSISTED PT MINIMALLY TO BEDSIDE COMMOED. PT ABLE TO HAVE A LOOSE BM AND ADEQUATE URINE OUTPUT (UNMEASURED). THIS RN STARTED PTS CEFEPIME, PT TOLERATING WELL. NO OTHER NEEDS BESIDES A WARM BLANKET NOTED.
--- NOTE | 2021-03-20 15:28 | NUR ---
Requested by Dr. Plummer to ask pt if she would consider a SNF on dc for rehab Spoke with pt and she declines, she does say she would go to OP therapy. She does have a ride. Left a note for Dr. Plummer.
--- NOTE | 2021-03-20 18:43 | NUR ---
THIS RN IN PTS ROOM TO GIVE EVENING MEDS. PT STATES THAT SHE NEEDS TO USE COMMODE. PT UP TO COMMODE TO HAVE BM. UO IS ADEQUATE AT THIS TIME. LIQUID BM. PT STATES THAT SHE IS HAVING SOME BACK PAIN- TYLENOL PROVIDED. THIS RN GAVE PT SOME EDUACTION ON COUMADIN. CALL LIGHT WITHIN REACH
--- NOTE | 2021-03-20 19:35 | NUR ---
IN TO ASSIST PT WITH THE BSC, 1P/SBA PIVOT, BED LINENS STRAGHTNED, BACK TO BED, COFFEE FOR PROVIDED, NO FURTHER NEEDS AT THIS TIME
--- NOTE | 2021-03-20 19:41 | NUR ---
BEDSIDE REPORT FROM AVA Lobato RN, PT RESTING IN BED ALERT AND ORIENTED, PT FAMILY MEMBER AT BEDSIDE. PT AND FAMILY MEMBER HAS MULTIPLE QUESTIONS, ALL ANSWERED THEN THEY WANTED TO SHOW GREAT GRANDBABY PICTURES, PT ALSO REQUESTED ASSISTANCE TO USE BSC.
--- NOTE | 2021-03-20 20:27 | NUR ---
PT'S IV BUMP WAS BEEPING, SHE IS NOW SL. SHE DENIES FURTHER NEEDS. CALL LIGHT IS CLOSE.
--- NOTE | 2021-03-20 21:32 | NUR ---
PT REFUSED DOCUSATE AT THIS TIME SHE HAS HAD SEVERAL LOOSE STOOLS TODAY. SHE REPORTED PAIN AT HER LEFT HIP/TAIL BONE, PILLOWS PROP AT LEFT HIP, TYLENOL PRN ADMINISTERED. SPOUSE AT BEDSIDE. FRESH ICE WATER PROVIDED, NO OTHER REQUESTS OR CONCERNS. PT ALERT AND ORIENTED, CALL LIGHT IN REACH. ASSESSMENT AND MED PASS COMPLETE.
--- NOTE | 2021-03-20 21:49 | NUR ---
IN ROOM TO ADMINISTER ROBITUSSIN PER PT REQUEST. SHE DENIES FURTHER NEEDS AT THIS TIME. CALL LIGHT IS CLOSE AND AT BEDSIDE.
--- NOTE | 2021-03-20 22:58 | NUR ---
PT UP TO BEDSIDE COMMODE, COUGHING SEVERE GRADE, PRODUCTIVE, VOIDED 250ML CLEAR YELLOW URINE, TESSLOON JEFFREY ADMINISTERED PRN FOR COUGH, ONE PERSON ASSIST, FLOATED LEFT HIP ON PILLOWS. SHE HAS NO OTHER CONCERNS OR COMPLAINTS AT THIS TIME. 97% OXYGEN SATURATION ON ROOM AIR.
--- NOTE | 2021-03-21 00:10 | NUR ---
PT DROWSY BUT AWAKE, WATCHING TV, SPOT CHECKING OXYGEN SATURATION 99% AT THIS TIME ON ROOM AIR.
--- NOTE | 2021-03-21 02:23 | NUR ---
PT OXYGEN 97% ON ROOM AIR, PT REPORTS HER "TAIL BONE HURTS" SKIN INTACT NO ISSUES ON ASSESSMENT, WILL PROVIDE TYLENOL PRN AT THIS TIME.
--- NOTE | 2021-03-21 04:46 | NUR ---
PT HAS NOT SLEPT WELL OVER SHIFT, SHE HAS BEEN AWAKE WATCHING TV. SHE DOES REPORT PAIN UP TO 8/10 AT LOW BACK "TAIL BONE", SKIN INTACT ON ASSESSMENT. SHE HAS BEEN ADMINISTERED TYLENOL PRN TWICE THIS SHIFT, SHE REPORTS SHE DOES NOT WANT ANYTHING ELSE. SHE REFUSED DOCUSATE DUE TO HAVING LOOSE STOOLS. SHE HAS REMAINED ON ROOM AIR OVER NIGHT MAINTAINING HIGH 90% OXYGEN SATURATIONS. SHE HAS BEEN ASSISTED TO RE-POSITION REGULAR, ONE PERSON ASSSIST TO BEDSIDE COMMODE MULTIPLE TIME, SHE REQUIRES ASSISTANCE TO LIFT HER LEGS BACK INTO BED. HEART RATE REMAINS REGULAR RATE AND RHYTHM.
--- NOTE | 2021-03-21 05:27 | NUR ---
PT CALLED TO USE BEDSIDE COMMODE SHE IS COUGHING AND SPITTIN GINTO GARBAGE, SHE VERBALIZED THAT SHE COUGHS SO HARD IT MAKES HER SICK TO HER STOMACH. ASKED PT IF SHE WOULD LIKE MEDICINE FOR COUGH OR NAUSEA, SHE SAID "NO, IT IS SETTLING DOWN NOW" WILL MONITOR FOR FURTHER INTERVENTION NEEDED. PT HAD 200ML URINE MIXED WITH LIQUID STOOL.
--- NOTE | 2021-03-21 07:00 | NUR ---
PT CALLED NURSES STATION TO REQUEST ASSISTANCE, YANIQUE LOZANO INTO ROOM, PT HAVING EMESIS, RN INTO ROOM PT REPORTS SHE WOKE UP HAVING EMESIS, WITHOUT COUGHING, ZOFRAN 4MG IV ADMINISTERED PRN
--- NOTE | 2021-03-21 07:00 | NUR ---
Report received from Kassandra BROWN. Pt resting in bed with eyes closed, breathing even and unlabored. IV ABX infusing. Pt has no apparent needs, on RA. Call light in reach. Will continue plan of care.
--- NOTE | 2021-03-21 07:55 | NUR ---
PT AWAKE IN BED. WHITE BOARD UPDATED AND CALL LIGHT WITHIN REACH. PT REFUSED A BREAKFAST ORDER. KEVIN ARCHIBALD NOTIFED.
--- NOTE | 2021-03-21 09:30 | NUR ---
Scheduled medications administered, held metoprolol as BP under parameters, senna held as pt refused d/t loose stools. PRN cough meds provided, pt continues to have productive cough and become nauseated after coughing up phlegm. Pt resting in bed, watching tv and states no needs at this time. Assessment complete, lungs dim and tight throughout. A+O.
--- NOTE | 2021-03-21 12:30 | NUR ---
Rounded on patient who is resting in bed with eyes closed. As she states she "did not sleep well" last night, allowed to rest undisturbed at this time. Respirations even and unlabored. Call light in reach.
--- NOTE | 2021-03-21 14:15 | NUR ---
PRN cough medicine administered, assessment complete. Pt stands to BSC with 1PA. Bed bath provided, gown changed, linens changed. Alysha care complete. VSS, A+O, I/Os complete. Saline locked. Family at bedside. Ice water, warm blankets provided. No other needs reported.
--- NOTE | 2021-03-21 15:30 | NUR ---
Pt's son approaches nurses station and states that he "was just talking to mom and they both agree that she should go to a SNF/rehab facility after discharge". Pt's son states that she will need more help than what the family can provide at home. boat engine mechanic notified.
--- NOTE | 2021-03-21 18:00 | NUR ---
VSS, A+O, I/Os complete. Pt states that her IV in R upper arm is painful from insertion site "all the way into her armpit". She adamantly requests it to be removed. Pt has IV site in L hand that is patent and flushes WNL. Upper arm IV removed at this time. PRN tylenol administered and heat pack applied to upper arm for relief. Pt states happy with this care.
--- NOTE | 2021-03-21 19:30 | NUR ---
PATIENT RESTING IN BED AND DENIES ANY CARE NEEDS AT THIS TIME. PATIENT SAYS THE PAIN IN HER RIGHT ARM IS GONE NOW THAT THE IV WAS TAKEN OUT BY KEVIN ARCHIBALD. PATIENT'S WHITE BOARD UPDATED AND WILL BE BACK TO CHECK ON PATIENT SOON THIS RN HAS ROUNDED ON HIS OTHER PATIENT'S. CALL LIGHT IS IN REACH.
--- NOTE | 2021-03-21 20:15 | NUR ---
PATIENT PM ASSESSMENT COMPLETE. PATIENT DENIES PAIN EXCEPT WHEN FLUSHING THE LEFT HAND IV PATIENT SAYS IT HURTS, BUT DOES NOT HURT WHILE IV IS RUNNING. IV SITE NOT SWOLLEN OR RED AND FLUSHES EASILY. PATIENT HAS LIMITED VAIN STATUS AND RIGHT ARM ULTRA SOUND QUIDED IV WAS JUST PULLED BY THE PREVIOUS SHIFT FOR C/O PAIN. IV INFUSING WITHOUT PAIN AT THIS TIME. PATIENT PULLED UP IN BED BY THIS RN AND YANIQUE LOZANO. PATIENT DENIES THE NEED TO VOID AT THIS TIME AND SAYS SHE WILL CALL WHEN SHE NEEDS TO VOID. PATIENT HAD NO OTHER CARE NEEDS AT THIS TIME. COUGH MEDICATION GIVEN. LIGHTS TURNED DOWN AND CALL LIGHT IS IN REACH.
--- NOTE | 2021-03-21 22:05 | NUR ---
PATIENT'S IV SALINE LOCKED WITH 5MLS NS. PATIENT SAYS THIS HURTS AGAIN NOW THAT IV IS DONE INFUSING. IV STILL FLUSHEDS EASILY AND IS NOT RED OR INFILTRATED. LEAVING IV IN FOE THE TIME BEING. PATIENT HAS A BAGLE AND CREAM CHEESE SHE IS GOING TO TRY AND EAT AND DEDNIED HELP WITH IT. PATIENT HAD NO OTHER NEEDS AT THIS TIME. LIGHTS TURNED DOWN AT PATIENT'S REQUEST, WATCHING TV, CALL LIGHT IS IN REACH.
--- NOTE | 2021-03-22 00:10 | NUR ---
PATIENT CALLED FOR SOME ICE WATER AND HER WATER WAS REFILLED. PATIENT HAD NO OTHER NEEDS AT THIS TIME AND CALL LIGHT IS IN REACH.
--- NOTE | 2021-03-22 00:16 | NUR ---
PATIENT RESTING QUIETLY IN SEMI-FOWLERS POSITION, EYES CLOSED, RESPIRATIONS ARE REGULAR AND EVEN, AND CALL LIGHT IS IN REACH. PATIENT HAS NO CURRENT CARE NEEDS AT THIS TIME.
--- NOTE | 2021-03-22 02:14 | NUR ---
PATIENT AWAKE SITTING IN BED WATCHING TV. PATIENT STILL DENIES THE NEED TO VOID AT THIS TIME. PATIENT ASKED ME TO THROW HER BAGEL AWAY AND SAID,"THAT TASTED TERRIBLE!" PATIENT GIVEN HALF OF A POPSICLE THAT SHE REQUESTED. PATIENT HAS NO OTHER CARE NEEDS AT THIS TIME. CALL LIGHT IS IN REACH.
--- NOTE | 2021-03-22 04:25 | NUR ---
IN TO ASSIST PT TO THE BSC, NEW ATTENDS IN PLACE, VITALS DONE, PT FEELING NAUSOUS WITH AMBULATION, RN IN TO CHECK ON PT
--- NOTE | 2021-03-22 04:50 | NUR ---
PATIENT GOT NAUSEATED WHEN SHE GOT UP TO THE BEDSIDE COMMODE AND STARTED COUGHING. COUGH SYRUP GIVEN AND 4MG IV ZOFRAN. WARM PACK PLACED OVER IV SITE PRIOR TO GIVING ZOFRAN AND THIS HELPED THE IV MED AND FLUSH NOT TO HURT. IV STILL WNL. AM ASSESSMENT COMPLETE AND PATIENTHAD NO OTHER CARE NEEDS AT THIS TIME.
--- NOTE | 2021-03-22 08:29 | NUR ---
Tessalon perles 200mg and tylenol 500mg po admin for cough and generalized pain.
--- NOTE | 2021-03-22 11:07 | NUR ---
PATIENT IN BED RESTING WITH EYES CLOSED. VITALS DONE BY RN EARLIER. I&O'S CHARTED. CALL LIGHT IN REACH. NO FURTHER NEEDS AT THIS TIME.
--- NOTE | 2021-03-22 11:52 | NUR ---
Patient in bed watching tv, no distress. Patient denies pain at this time. Water at bedside. No current needs. Personal supplies and call light within reach.
--- NOTE | 2021-03-22 14:53 | NUR ---
PATIENT IN BED RESTING WITH EYES CLOSED. I&O'S CHARTED. CALL LIGHT IN REACH. NO FURTHER NEEDS AT THIS TIME.
--- NOTE | 2021-03-22 17:01 | NUR ---
Admin tylenol 500mg po for 5/10 generalized pain.
--- NOTE | 2021-03-22 17:36 | NUR ---
Patient sitting up in bed watching tv, no distress. Patient denies nasuea at this time. Per pt, she is feeling much better today. Family member at bedside visiting. No current needs. Personal supplies and call light within reach.
--- NOTE | 2021-03-22 18:32 | NUR ---
ZOFRAN 4MG IVP ADMIN FOR NAUSEA.
--- NOTE | 2021-03-22 20:45 | NUR ---
THIS RN IN TO PERFORM EVENING ASSESSMENT WITH YANIQUE BARRIOS ASSISTING. VS STABLE AND PATIENT NOT NAUSEATED AT THIS TIME. PATIENT SAYS,"MY TAILBONE IS REALLY HURTING." GOT PATIENT UP TO BED SIDE COMMODE AND PATIENT VOIDED AND PATIENT NOTED TO HAVE A SMALL STAGE TO PRESSURE ULCER ON HER COCCYX. IT LOOKS LIKE THE AREA HAS BEEN DAMAGED IN THE PAST AND WAS NOT NOTED LAST NIGHT BY THIS RN ON ASSESSMENT. ROLLER COASTER ENGINEER KAM AND ROCIO CHARGE NURSE WERE REQUESTED BY THIS RN TO COME AND LOOK AT THE SITE. THE COCCYX AREA IS DRY AND IT LOOKS LIKE THIS MIGHT HAVE BEEN FROM A LITTLE SHEER. COCCYX ALLEVYN PUT IN PLACE AND EGG CRATE MATTRESS PLACED ON THE PATIENT'S BED. PATIENT MUCH MORE COMFORTABLE NOW, BUT IS REQUESTING SOME TYLENOL, WHICH I WILL GET SHORTLY. NEW LINENS ON BED AND CALL LIGHT IS IN REACH.
--- NOTE | 2021-03-22 21:00 | NUR ---
REDENNED AREA NOTICED ON COCCYX BY RN TOÑITO. EXECUTIVE COMPENSATION ANALYST AND LADLE REPAIRER KAM IN ROOM. STAGE TWO PRESSURE SORE NOTED. WOUND CARE NURSE STATES WOUND LOOKS OLD. CONSENT OBTAINED AND PICTURE IN CHART. ALLEVYN PLACED ON COCCYX. EGG CRATE MATTRESS APPLIED TO BED. PRIMARY RN REMAINS IN ROOM.
--- NOTE | 2021-03-22 21:13 | NUR ---
PATIENT GIVEN PO TYLENOL FOR 6/10 COCCYX PAIN. PATIENT'S COUGH IS BETTER FROM TESSALON PERLES GIVEN EARLIER AND COUGH SYRUP. PATIENT DENIES ANY OTHER NEEDS AT THIS TIEM. LIGHTS TURNED DOWN AT PATIENT'S REQUEST AND CALL LIGHT IS IN REACH.
--- NOTE | 2021-03-22 22:49 | NUR ---
CHECKED ON PATIENT AND SHE WANTED TO MOVE UP IN BED AND BE POSITIONED OFF HER BACK SIDE MORE EVEN WITH THE NEW EGG CRATE MATTRESS. PATIENT LIFTED UP IN BED BY YANIQUE BARRIOS AND THIS RN, AND PATIENT REPOSITIONED FLOATED UP OFF HER COCCYX ON PILLOWS AND PATIENT WAS OK WITH HER NEW POSITION. PATIENT DENIED ANY OTHER CARE NEEDS AT THIS TIME. CALL LIGHT IS IN REACH.
--- NOTE | 2021-03-23 00:18 | NUR ---
PATIENT'S PAIN IN HER COCCYX IS DOWN TO 4/10 AND PATIENT ASKED TO TURN TO HER RIGHT SIDE AND THIS RN REPOSITIONED PATIENT TO HER RIGHT SIDE WITH PILLOWS SUPPORTING HER BACK. PATIENT ALSO REQUESTED MORE COUGH MEDICATION AND THIS WAS ALSO GIVEN. PATIENT DENIED ANY OTHER NEEDS AT THIS TIME. CALL LIGHT IS IN REACH.
--- NOTE | 2021-03-23 02:05 | NUR ---
PATIENT STILL AWAKE AND HAVING NO PAIN AT THIS TIME. PATIENT DOESN'T WANT TO TURN YET, BUT WANTED A POPSICLE AND THIS WAS GIVEN. PATIENT DENIES ANY OTHER NEEDS AT THIS TIME. CALL LIGHT IS IN REACH.
--- NOTE | 2021-03-23 04:14 | NUR ---
CALL LIGHT ANSWERED. 1PA WITH FWW TO [facility] [place] [place] FOR VOID, 600 ML CLEAR YELLOW URINE. pt COUGHING, ATTENDS CHANGED DUE TO DRIBBLING. pt BACK IN BED. REPOSITIONED TO LEFT SIDE WITH PILLOW UNDER RIGHT HIP. PILLOW BETWEEN LEGS. pt WITH CALL LIGHT IN REACH. NO ADDITIONAL REQUESTS.
--- NOTE | 2021-03-23 05:48 | NUR ---
PATIENT HAS NOT SLEPT ALL NIGHT. PATIENT STARTED OUT WITH PAIN AT HER COCCYX AND SOME CONTINUED DISCOMFORT IN HER RIGHT ARM FROM OLD IV DC'D DAY BEFORE YESTERDAY. PATIENT HAS A NEW EGG CRATE ON HER BED AND HAS BEEN BEING TURNED WHEN SHE WILL ALLOW STAFF TO DO SO. A SMALL STAGE 2 PRESSURE ULCER/SHEER ON COCCYX NOTED LAST NIGHT AND AN ALLEVYN IS IN PLACE. PATIENT WAS ONLY TAKING TYLENOL WHICH HAS BEEN HELPING. JUST NOW PATIENT C/O LET RIB PAIN 12/19 DUE TO HER CANCER, WHICH IS THE FIRST TIME TONIGHT SHE HAS MENTIONED IT. TYLENOL GIVEN AGAIN AND PATIENT DOES NOT WANT TO TAKE ANYTHING STRONGER THAN TYLENOL. VS WNL AND PATIENT IS VOIDING QUANTITY SUFFICIENT. PATIENT'S LIGHTS ARE DOWN AND CALL LIGHT IN REACH. ICE WATER REFILLED. PATIENT HAS NO OTHER CARE NEEDS AT THIS TIME.
--- NOTE | 2021-03-23 07:20 | NUR ---
Report received from Maico BROWN. Pt resting in bed with eyes closed, even and unlabored respirations. No needs identified, will continue plan of care.
--- NOTE | 2021-03-23 09:45 | NUR ---
Scheduled medications administered, assessment complete. Pt resting in bed watching tv. She reports "not doing well earlier, feeling like I was burning up and soaking wet" her VS are currently stable and afebrile. Pt states "feeling well now". She states new egg crate on mattress is helpful. No other complaints. A+O. VSS.
--- NOTE | 2021-03-23 11:45 | NUR ---
Notified by Dr. Plummer, pt is now wanting to go to a SNF for deconditioning on dc. Spoke to pt and her spouse Everardo. Pt feels she needs rehab. [facility] choice [facility]. She and he also discussed and feel [place] would work as her best friend lives there. Her adult son resides in [place] at [facility] and she would also agree to go there. Called [facility] and [facility]. I was not able to speak with their intake people but was able to leave messages. Called and left a message for Dagoberto at [facility].
--- NOTE | 2021-03-23 12:30 | NUR ---
Pt resting in bed watching tv. She reports no needs at this time. Discussed coughing that leads to patient spitting up saliva and scant amount phlegm. She reports intermittent nausea and denies needs for pain or nausea medications at this time.
--- NOTE | 2021-03-23 14:14 | NUR ---
PT ALERT, ORIENTED AND WATCHING TV. PT BEGAN TO VISIT WITH ME ABOUT HOW MUCH SHE MISSES HER PET DOG. PT GOT EMOTIONAL TALKING ABOUT HER DOG. HAD GOOD VISIT WITH PT, SHE REQUESTED PRAYER. LEFT G.POST AND WILL FOLLOW NEEDED
--- NOTE | 2021-03-23 14:31 | NUR ---
PATIENT IS ON HER WAY TO THE BATHROOM. SHE STATES SHE HAD MANDARIN ORANGES FOR LUNCH WHICH SHE REALLY LIKED. HER ATE THE GRILLED CHEESE SANDWICH AND TOMATO SOUP. CONTINUE REGULAR DIET AND WILL TRY TO REVISIT PATIENT ON DRINKING ENSURE.
--- NOTE | 2021-03-23 14:38 | NUR ---
PATIENT UP TO BSC AND THEN TO CHAIR, PIVOT, 1PA FWW. VITALS AND I&O'S CHARTED. LINENS CHANGED. FRESH WATER GIVEN. IN ROOM. CALL LIGHT IN REACH. NO FURTHER NEEDS AT THIS TIME.
--- NOTE | 2021-03-23 16:02 | NUR ---
Pt repostioned in bed, assessment complete. Hot tea and warm blankets provided. Pt has no further needs. Pillow placed under coccyx.
--- NOTE | 2021-03-23 17:45 | NUR ---
I have not received return call from SNFs I have attempted to contact. Faxed chart to Dagoberto at [facility] and will contact in the am.
--- NOTE | 2021-03-23 18:11 | NUR ---
Dr Plummer notified regarding patient's low UOP, most recent temperature.
--- NOTE | 2021-03-23 20:10 | NUR ---
PATIENT CALLED FOR NAUSEA, COUGH, AND PAIN MEDICATION. IV ZOFRAN 4MG SIVP GIVEN, TYLENOL GIVEN FOR 9/10 CHEST PAIN, COUGH SYRUP AND TESSALON PERLES GIVEN. PATIENT TURNED UP ON HER LEFT SIDE WITH PILLOWS. LR AT 250MLS AN HOUR STARTED A BOLUS TO EQUAL 500MLS TOTAL TO IMPROVE URINE OUTPUT. YANIQUE BARRIOS ASSISTING THIS RN IN THE ROOM. PATIENT'S ICE WATER REFILLED. PATIENT DENIES ANY OTHER CARE NEEDS AT THIS TIME. CALL LIGHT IN REACH AND PATIENT HAS FAMILY HERE VISITING.
--- NOTE | 2021-03-23 21:25 | NUR ---
THIS RN CHECKED IN ON PATIENT AND SHE DESIRED TO BE TURNED UP ON HER RIGHT SIDE. PATIENT TURNED AND THIS RN WEDGED A PILLOW IN BEHIND PATIENT'S BACK AND HIPS. PATIENT SATISFIED WITH THIS POSITION AT THIS TIME. CALL LIGHT IN REACH. NO OTHER CARE NEEDS NOTED AT THIS TIME.
--- NOTE | 2021-03-23 23:15 | NUR ---
ASSISTED PRIMARY RN TOÑITO REPOSITIONED PATIENT.
--- NOTE | 2021-03-23 23:16 | NUR ---
THIS RN CHECKED IN ON THE PATIENT AND SHE WANTED SOME WARM WATER TO DRINK, WANTED TURNED MORE ON HER RIGHT SIDE, AND WANTED HER BED STRAIGHTENED UP. THIS RN AND YANIQUE BARRIOS ASSISTED WITH THESE THINGS. PATIENT HAS NO OTHER NEEDS AT THIS TIME AND PATIENT DENIES HURTING AT THIS MOMENT. CALL LIGHT IN REACH AND ROOM LIGHTS TURNED DOWN.
--- NOTE | 2021-03-24 01:04 | NUR ---
THIS RN CHECKED IN ON PATIENT AND SHE IS STILL AWAKE WATCHING TV. PATIENT ASKED IF CLAIMS SUPPORT SPECIALIST COULD COME IN AND ASSIST HER TO THE COMMODE. INFORMED DENIS CLAIMS SUPPORT SPECIALIST AND DENIS IS IN THE ROOM ASSISTING PATIENT AT THIS TIME.
--- NOTE | 2021-03-24 01:20 | NUR ---
1 pa to bedside commode. patient voided 325ml light yellow urine. patient is back in bed. patient repositioned. no other needs at this time.
--- NOTE | 2021-03-24 03:26 | NUR ---
IV ALARMING. NOW SL. WARM BLANKET PROVIDED. NO OTHER NEEDS AT THIS TIME.
--- NOTE | 2021-03-24 06:09 | NUR ---
KAMRN JABIER CHAMBERS PULLING PATIENT UP IN BED AND POSITIONING HER TO THE RIGHT SIDE WITH PILLOWS AT BACK AND BETWEEN LEGS. PATIENT HAVE A COUGHING FIT AND FELLING NAUSEATED. COUGH SYRUP GIVEN AND VEIN WARMER PLACED OVER IV AND 4MG IV ZOFRAN GIVEN SIVP AND FLUSHED. PATIENT HAS NO C/O PAIN AT THIS TIME. PATIENT DENIES ANY OTHER CARE NEEDS AT THIS TIME. LIGHTS TURNED DOWN AT PATIENT'S REQUEST AND CALL LIGHT IS IN REACH.
--- NOTE | 2021-03-24 07:30 | NUR ---
Report received from Maico BROWN. Pt resting in bed watching tv. She states no needs at this time. Will continue plan of care.
--- NOTE | 2021-03-24 07:57 | NUR ---
Texted Dagoberto at [facility] requesting if he has reviewed Brisa's chart and asked him to please let me know if he has a bed available.
--- NOTE | 2021-03-24 08:39 | NUR ---
Scheduled medications administered and assessment complete. Pt up to chair with YANIQUE Douglas, 1PA with FWW. Pt uses BSC to void. Pt c/o cough, nausea. PRN tessalon provided, scheduled reglan given.
--- NOTE | 2021-03-24 08:40 | NUR ---
this amr physician helped pt use the bedside commode. pt is now in the chair, whiteboard is updated, call light is within reach. no further needs at this time.
--- NOTE | 2021-03-24 10:30 | NUR ---
IVF bolus infusing. Pt transfers from chair to bed with FWW and SBA, gait markedly improved since admission. Water provided, warm blankets, repositioned in bed.
--- NOTE | 2021-03-24 12:22 | NUR ---
JAYY phillips provided. Dr Plummer in room to see patient and discuss plan of care. Pt agreeable. IVF infusing WNL. Pt eating lunch, likes chicken broth and tea.
--- NOTE | 2021-03-24 12:30 | NUR ---
Spoke with Dagoberto at [facility] and they have not had time to review this pt's chart. He askes I call back after 2 pm. Called back at 3 pm and he has questions if pt will cont. on chemo. Let him know its my understanding she does nothave more chemo tx. He would like this confirmed. Spoke with Brisa and she is unsure. Called the cancer clinic and she does not have any scheduled chemo in the next month. While I was speaking with pt, she states she does not want to go to [place] as her friend visited and told her she walked out due to poor care. Informed I can check with [facility] and see if they have a bed. Pt would like to discuss with spouse. Called [facility] and they will have a bed open tomorrow. Faxed Chart to [facility] and gave update, pt has been vaccinated, will not have chemo. She will let me know in the AM if they can accept.
--- NOTE | 2021-03-24 13:48 | NUR ---
PT ALERT, ORIENTED AND SAID SHE IS TEXTING FRIENDS IN [place] AND [facility]. PT MENTIONED SHE IS HAVING A MUCH BETTER DAY TODAY. LESS MOVEMENT MEANS LESS NAUSEA TO HER AND LESS BACK PAIN. PT HEARD FROM SON EARLY IN AM, AND THAT SEEMED TO REALLY HELP START HER DAY OFF ON A POSITIVE NOTE. PT REQUESTED PRAYER. GAVE BLESSING, WILL FOLLOW NEEDED
--- NOTE | 2021-03-24 14:45 | NUR ---
this preanalytics team lead helped pt go to the bathroom then back to bed. pt is now with pt.
--- NOTE | 2021-03-24 16:00 | NUR ---
Ultrasound guided 18g IV placed in L upper arm. IVF infusing WNL.
--- NOTE | 2021-03-24 16:30 | NUR ---
Brisa has not been able to discuss with spouse.
--- NOTE | 2021-03-24 17:30 | NUR ---
Called pts spouse and he is now in the room. To room and discussed with pt, she and he agree on [facility]. I will confirm with [facility] in the AM. Spouse with bring clothing and overnight bag around 9:30 in the am. also informed will need to confirm with Dr. Martinez in the am for discharge. Brochure for [facility] given to pt and spouse.
--- NOTE | 2021-03-24 18:07 | NUR ---
THIS RN IN PTS ROOM TO GIVE SCHEDULED MEDS AND PRN TYLENOL. PT REPORTS PAIN IN HER LEFT UPPER ARM NEAR IV SITE. THIS RN OFFERED PT HEAT OR COOL PACK- PT STATES THAT SHE WANTS A HEAT PACK- THIS WAS PROVIDED TO PT. PT STATES THAT SHE NEEDS NOTHING FURTHER.
--- NOTE | 2021-03-24 19:43 | NUR ---
REPORT RECEIVED FROM DAY SHIFT RN. PT LYING IN BED ALERT AND ORIENTED. DENIES NEEDS AT THIS TIME. WHITE BOARD UPDATED. CALL LIGHT IN REACH.
--- NOTE | 2021-03-24 22:15 | NUR ---
EVENING ASSESSMENT COMPLETE. SCHEDULED MEDS ADMINISTERED PER EMAR. PRN ADMINISTERED FOR COUGH PER PT REQUEST. PT REPORTS PAIN IN LEFT UPPER ARM IV SITE. IV FLUSHED PER PROTOCOL. BRISK BLOOD RETURN NOTED. SITE WNL, DRESSING INTACT. IV ABX INFUSING WNL. WARM COMPRESS PROVIDED, PT REPORTS RELIEF. SBA WITH FWW TO BS TO VOID AND HAVE SM BM. PT ABLE TO DO OWN COREY CARE. GAIT STEADY. BACK TO BED, TODD WELL. SNACKS AND FRESH WATER PROVIDED. PT DENIES FURTHER NEEDS. CALL LIGHT IN REACH.
--- NOTE | 2021-03-24 22:35 | NUR ---
PRIMARY RN HENRI TOLD THIS EXTRUDER OPERATOR HORIZONTAL TO MAKE A WARM PACK FOR PATIENT'S ARM. INSTRUCTED PATIENT TO TRY IF IT IS TOO HOT. PATIENT STATED JUST RIGHT AND MAYBE NEEDS TO BE REHEATED LATER". PATIENT IS ENJOYING EATING ZULEYKA CRACKERS.
--- NOTE | 2021-03-24 23:28 | NUR ---
PATIENT CALLED WANTING WARM PACK. PROVIDED.
--- NOTE | 2021-03-25 00:58 | NUR ---
PT REPORTS SHE IS RESTING WELL. IV SITE WRAPPED WITH COBAN PER PT REQUEST. NO FURTHER NEEDS AT THIS TIME. CALL LIGHT IN REACH.
--- NOTE | 2021-03-25 03:18 | NUR ---
PT RESTING IN BED WITH EYES CLOSED. RESPIRATIONS EVEN. CALL LIGHT IN REACH.
--- NOTE | 2021-03-25 05:39 | NUR ---
SBA TO BSC WITH FWW TO VOID 250 ML YELLOW URINE. PT ABLE TO DO OWN COREY CARE. BACK TO BED, TODD WELL. GAIT STEADY. VS AND I&O COMPLETE. WARM TEA AND FRESH WATER PROVIDED. LAB IN ROOM FOR MORNING DRAW. NO FURTHER NEEDS.
--- NOTE | 2021-03-25 07:43 | NUR ---
BEDSIDE REPORT FROM HENRI RN, PT RESTING IN BED ALERT AND ORIENTED, SHE SAID SHE REMEBERS THIS RN FROM LAST WEEK, SHE SAID SHE THINKS SHE IS GOING TO GET TO DISCHARGE TODAY. PT HAS NO REQUESTS OR CONCERNS AT THIS TIME.
--- NOTE | 2021-03-25 08:15 | NUR ---
PT WAS IN BED. PT DECLINED GETTING INTO CHAIR. PT STATED THEY HAD ALREADY GOTTEN UP TO DO AM CARE. PT STATED THEY WASHED THEIR FACE AND WENT TO THE BATHROOM. WHITEBOARD IS UPDATED. CALL LIGHT IS WITHIN REACH. NO FURTHER NEEDS AT THIS TIME.
--- NOTE | 2021-03-25 08:40 | NUR ---
PT SITTING UP IN BED ALERT AND ORIENTED, SHE REFUSED SENNOSIDE. SHE HAS BEEN EATING ON BREAKFAST SLOWLY
--- NOTE | 2021-03-25 09:17 | NUR ---
Spoke with Shahnaz from [facility] and they have accepted this pt. She will call me back after their morning meeting to let me know transport time. Pt will need a covid test and test ordered. Called pts spouse, Singh, and updated. Pt updated. Called primer charger and updated.
--- NOTE | 2021-03-25 09:33 | NUR ---
RAPID COVID TEST DONE PER DR ORDER. COVID TEST COLLECTED FROM BOTH NARES. LEFT SIDE HAD OBSTRUCTION. RIGHT SIDE GOOD. PT TOLERATED WELL.
--- NOTE | 2021-03-25 09:33 | NUR ---
Notified by Shahnaz from [facility] they will pick pt up for transport around noon. Notified charge gang weigher and took printed orders to Dr. Martinez for completion.
[2021-03-25] MEDS ORDERED: METOPROLOL SUCC50 MG PO (10:10)
[2021-03-25] MEDS ORDERED: BENZONATATE100 MG PO (10:10)
[2021-03-25] MEDS ORDERED: LORAZEPAM1 MG PO (10:10)
[2021-03-25] MEDS ORDERED: METOCLOPRAMIDE H5 MG PO (10:11)
[2021-03-25] MEDS ORDERED: PROCHLORPERAZINE5 MG PO (10:11)
[2021-03-25] MEDS ORDERED: ONDANSETRON HCL4 MG PO (10:11)
[2021-03-25] MEDS ORDERED: GUAIFENESIN-CODE5 ML PO (10:11)
--- NOTE | 2021-03-25 10:19 | NUR ---
Spoke with Dagoberto from [facility] and updated pt declined placement.
--- NOTE | 2021-03-25 11:13 | NUR ---
THIS RN TO ROOM TO ASSIST WITH HELPING PT GET READY FOR DISCHRAGE. IV'S DC'E PER PROTOCOL, GAUZE AND COBMICHELLE APPLIED, TIPS IN TACT, PT TOLERATED WELL. PT DRESSED WITH 1 PERSON ASSIST. COUGH INCREASES WITH ACTIVITY OF STANDING. VITAL SIGNS REMAIN STABLE. KITCHEN CALLED TO HAVE LUNCH PACKED IN A TO-GO BOX. PTS REMAINS AT BEDSIDE. NO ADDITIONAL REQUESTS OR COMPLAINTS. CALL LIGHT WITHIN REACH. BED RAILS UP.
--- NOTE | 2021-03-25 11:24 | NUR ---
FLOATING RN JOSE MANUEL Crespo RN COMPLETED PREPARING PT FOR DISHCARGE, REMOVED IV SITES AND TOOK V/S
--- NOTE | 2021-03-25 12:00 | NUR ---
[facility] TRANSFER PERSONELL HERE TO MANAGER SOCIAL PT. PACKET GIVEN TO THUAN WHO WILL BE TRANSFEREING PT. PT TRANSERFERED TO WHEELCHAIR WITH 1 PERSON ASSIST, ALL BELONGINGS WITH PT. PTS ACCOMPANYING PT. PT AND STATE THEIR QUESTIONS HAVE BEEN ANSWERED.
== END 2021-03-25 12:00 | DRG 308 ==
LOC: ED 15:02 → CCU 18:56 → MS 03-20 13:20
PROVIDERS: ADMIT Internal Medicine; ATTEND Internal Medicine
DX: I48.91 Unspecified atrial fibrillation (principal); J15.6 Pneumonia due to other Gram-negative bacteria; E43 Unspecified severe protein-calorie malnutrition; E87.1 Hypo-osmolality and hyponatremia; C34.90 Malignant neoplasm of unspecified part of unspecified bronchus or lung; E86.1 Hypovolemia; K59.00 Constipation, unspecified; Z20.822 Contact with and (suspected) exposure to COVID-19; Z92.21 Personal history of antineoplastic chemotherapy; Z92.3 Personal history of irradiation; Z85.3 Personal history of malignant neoplasm of breast; Z90.710 Acquired absence of both cervix and uterus; Z90.49 Acquired absence of other specified parts of digestive tract; Z98.890 Other specified postprocedural states; Z79.899 Other long term (current) drug therapy; Z79.01 Long term (current) use of anticoagulants; Z87.891 Personal history of nicotine dependence
CPT/HCPCS: 51701; 71045; 80048; 80053; 80162; 80202; 81001; 83605; 83735; 83880; 84484; 85025; 85610; 87040; 87070; 87205; 93005; 93010; 93306; 97110; 97161; 97166; 97535; 99285-25; C9803; J0692; J1160; J1956; J2405; J2550; J3370; J3480; J7030; J7060; J7121; P9047; U0003

== ENCOUNTER 2021-05-07 14:33 | Emergency (ER) | payer MEDICARE ==
[~2021-05-07] VITALS: Ht 160 cm; Wt 52.2 kg
[~2021-05-07 14:33] MED LIST changes: +AMOXICILLIN500 MG PO; +GUAIFENESIN-CODE5 ML PO; +METOCLOPRAMIDE H5 MG PO; +METOPROLOL SUCC50 MG PO; +ONDANSETRON HCL4 MG PO; +PROCHLORPERAZINE5 MG PO; +WARFARIN SODIUM5 MG
--- OUTSIDE RECORDS SUMMARY | 2021-05-07 14:36 | XMS ---
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 Patient has appt with Dr. Alvarado on 01/29/2021. Care History Medical/Surgical 03/19/2021 [facility] Patient was sent to ED from Oncologists office - Dr. Alvarado. Patient admitted. 02/26/2021 [facility] Follow up visits with Dr. Alvarado on 02/26/[address] Hsu on 202011/19/2020 [facility] - Patient is currently established with [facility]. If patient is seen in the ED during business hours. Please contact CHWs at [facility]. Care Recommendation: If this patient has had 5 or more Emergency Department visits in the last 12 months.\T\nbsp; Patient will require education on the scope and purpose of the ED as an acute care provider not a Primary Care Provider and should not be utilized for chronic conditions.\T\nbsp; These are guidelines and the provider should exercise clinical judgment when providing care. [facility] VISIT COUNT (12 MO.) 2 [facility] 9 [facility] TOTAL 11 NOTE: Visits indicate total known visits. ED/UCC VISIT TRACKING (12 MO.) 05/07/2021 14:34 [facility] [place] TYPE: Emergency COMPLAINT: - DIZZY, NUMB ALL OVER 05/05/2021 11:09 [facility] [place] TYPE: Emergency DIAGNOSES: - fall - Unspecified injury of head, initial encounter - Head Injury - Syncope and collapse 03/18/2021 15:03 [facility] [place] TYPE: Emergency COMPLAINT: - LOW BP, NAUSEA, POSS CARDIAC ISSUE 02/24/2021 11:10 [facility] [place] TYPE: Emergency COMPLAINT: - DEHYRATED DIAGNOSES: - Acquired absence of both cervix and uterus - Acquired absence of other organs - Unspecified atrial fibrillation - residential (current) use of anticoagulants - Urinary tract infection, site not specified - Other rat exterminator (current) drug therapy - Personal history of nicotine dependence - Personal history of malignant neoplasm of breast - Weakness 02/22/2021 16:47 [facility] [place] TYPE: Emergency [...] initial encounter - Unspecified atrial fibrillation - residential (current) use of anticoagulants - Contusion of lower back and pelvis, initial encounter - Headache, unspecified - Acquired absence of both cervix and uterus - Other rat exterminator (current) drug therapy 02/17/2021 12:10 [facility] [place] TYPE: Emergency DIAGNOSES: - Chest Pain - Chest pain, unspecified 01/12/2021 05:05 [facility] [place] TYPE: Emergency COMPLAINT: - FALL DIAGNOSES: - Fall on same level, unspecified, initial encounter - Contusion of left front wall of thorax, initial encounter - Contusion of left shoulder, initial encounter - Unspecified atrial fibrillation - residential (current) use of anticoagulants - Contusion of left hip, initial encounter - Contusion of right shoulder, initial encounter - Personal history of nicotine dependence - Other injury of unspecified body region, initial encounter - Pain in right shoulder - Personal history of malignant neoplasm of breast - Other senior care (current) drug therapy 12/18/2020 15:[address] [facility] [facility] [place] TYPE: Emergency COMPLAINT: - WEAKNESS 12/08/2020 09:[address] [facility] [place] TYPE: Emergency COMPLAINT: - IRREGULARE HEART RATE 11/18/2020 15:[address] [facility] [place] TYPE: Emergency COMPLAINT: - CHEST PAIN 08/17/2020 10:59 [facility] [place] TYPE: Emergency COMPLAINT: - DIFFICULTY BREATHING DIAGNOSES: - Other nonspecific abnormal finding of lung field - Shortness of breath INPATIENT VISIT TRACKING (12 MO.) 03/18/2021 18:56 [facility] [place] TYPE: Medical Surgical COMPLAINT: - AFIB WITH RVR DIAGNOSES: - Other senior care (current) drug therapy - Constipation, unspecified - Unspecified severe protein-calorie malnutrition - Constipation, unspecified - Personal history of nicotine dependence - Unspecified severe protein-calorie malnutrition - Personal history of nicotine dependence - Personal history of malignant neoplasm of breast - Acquired absence of both cervix and uterus - Hypovolemia - Acquired absence of both cervix and uterus - Pneumonia due to other Gram-negative bacteria - residential (current) use of anticoagulants - Hypo-osmolality and hyponatremia - Hypo-osmolality and hyponatremia - Personal history of antineoplastic chemotherapy - Personal history of irradiation - Malignant neoplasm of unspecified part of unspecified bronchus or lung - Personal history of malignant neoplasm of breast - Malignant neoplasm of unspecified part of unspecified bronchus or lung - Personal history of antineoplastic chemotherapy - Pneumonia due to other Gram-negative bacteria - Other specified postprocedural states - Acquired absence of other specified parts of digestive tract - Hypovolemia - Acquired absence of other specified parts of digestive tract - residential (current) use of anticoagulants - Unspecified atrial fibrillation - Personal history of irradiation - Other rat exterminator (current) drug therapy - Other specified postprocedural states 12/18/2020 15:25 [facility] [place] TYPE: Observation COMPLAINT: - A-FIB DIAGNOSES: - Unspecified atrial fibrillation - Personal history of nicotine dependence - Malignant neoplasm of unspecified part of unspecified bronchus or lung 12/09/2020 08:10 [facility] [place] TYPE: Medical Surgical COMPLAINT: - AFIB W/ RVR DIAGNOSES: - Other senior care (current) drug therapy - Other rat exterminator (current) drug therapy - Personal history of [...] - Urinary tract infection, site not specified [email or web address]
== END 2021-05-07 19:55 | disposition home or self-care (01) ==
LOC: ED 14:33
DX: R53.1 Weakness (principal); Z85.3 Personal history of malignant neoplasm of breast; Z87.891 Personal history of nicotine dependence; Z79.899 Other long term (current) drug therapy
CPT/HCPCS: 80053; 85025; 99284

== ENCOUNTER 2021-05-12 22:30 | Emergency (ER) | payer MEDICARE ==
[~2021-05-12] VITALS: Ht 160 cm; Wt 52.2 kg
--- OUTSIDE RECORDS SUMMARY | 2021-05-12 22:32 | XMS ---
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 Patient has appt with Dr. Alvarado on 01/29/2021. Care History Medical/Surgical 05/11/2021 [facility] Patient has follow up visit with Dr. Hsu on 05/14/2021. 03/19/2021 [facility] Patient was sent to ED from Oncologists office - Dr. Alvarado. Patient admitted. 02/26/2021 [facility] Follow up visits with Dr. Alvarado on 02/26/[address] Hsu on 2020 [facility] VISIT COUNT (12 MO.) 2 [facility] 10 [facility] TOTAL 12 NOTE: Visits indicate total known visits. ED/UCC VISIT TRACKING (12 MO.) 05/12/2021 22:30 [facility] [place] TYPE: Emergency COMPLAINT: - LOW BLOOD PRESSURE 05/07/2021 14:34 [facility] [place] TYPE: Emergency COMPLAINT: - DIZZY, NUMB ALL OVER DIAGNOSES: - Personal history of nicotine dependence - Weakness - Personal history of malignant neoplasm of breast - Other [facility] (current) drug therapy 05/05/2021 11:09 [facility] [place] TYPE: Emergency DIAGNOSES: - fall - Unspecified injury of head, initial encounter - Head Injury - Syncope and collapse 03/18/2021 15:[address] [facility] [place] TYPE: Emergency COMPLAINT: - LOW BP, NAUSEA, POSS CARDIAC ISSUE 02/24/2021 11:[address] 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 - Contusion of lower back and pelvis, initial encounter - Headache, unspecified - Acquired absence of both cervix and uterus - Other longwall headgate operator (current) drug therapy 02/17/2021 12:10 [facility] [place] TYPE: Emergency DIAGNOSES: - Chest Pain - Chest pain, unspecified 01/12/2021 05:05 [facility] [place] TYPE: Emergency COMPLAINT: - FALL DIAGNOSES: - Fall on same level, unspecified, initial encounter - Contusion of left front wall of thorax, initial encounter - Contusion of left shoulder, initial encounter - Unspecified atrial fibrillation - intermediate (current) use of anticoagulants - Contusion of left hip, initial encounter - Contusion of right shoulder, initial encounter - Personal history of nicotine dependence - Other injury of unspecified body region, initial encounter - Pain in right shoulder - Personal history of malignant neoplasm of breast - Other [facility] (current) drug therapy 12/18/2020 15:24 [facility] [place] TYPE: Emergency COMPLAINT: - WEAKNESS [...] - AFIB WITH RVR DIAGNOSES: - Other [facility] (current) drug therapy - Constipation, unspecified - [...] Pneumonia due to other Gram-negative bacteria - intermediate (current) use of anticoagulants - Hypo-osmolality and [...] other specified parts of digestive tract - 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 - Unspecified atrial fibrillation - Personal history of irradiation - Other longwall headgate operator (current) drug therapy - Other specified postprocedural states 12/18/2020 15:25 [facility] [place] TYPE: Observation COMPLAINT: - A-FIB DIAGNOSES: - Unspecified atrial fibrillation - Personal history of nicotine dependence - Malignant neoplasm of unspecified part of unspecified bronchus or lung 12/09/2020 08:10 [facility] [place] TYPE: Medical Surgical COMPLAINT: - AFIB W/ RVR DIAGNOSES: - Other [facility] (current) drug therapy - Other longwall headgate operator (current) drug therapy - Personal history of [...] - Urinary tract infection, site not specified [id number]
[2021-05-12] MEDS ORDERED: ELIQUIS5 MG PO (22:54)
[2021-05-13] MEDS ORDERED: MEGESTROL400 MG/11 PO (00:55)
== END 2021-05-13 01:36 | disposition home or self-care (01) ==
LOC: ED 22:30
DX: I95.9 Hypotension, unspecified (principal); R63.0 Anorexia; Z85.3 Personal history of malignant neoplasm of breast; Z85.118 Personal history of other malignant neoplasm of bronchus and lung; I48.91 Unspecified atrial fibrillation; Z87.891 Personal history of nicotine dependence; Z79.899 Other long term (current) drug therapy; Z79.01 Long term (current) use of anticoagulants
CPT/HCPCS: 36415; 81001; 82947; 84132; 84295; 84520; 85025; 99284; J7030